=== PATIENT | female | born 1960 | race Caucasian/White ===

== ENCOUNTER → 2017-10-19 12:01 | Outpatient (CLI) | payer OTHER, SELFPAY ==
--- NOTE | 2017-10-19 | DI.MG.S_ITS ---
BILATERAL DIGITAL SCREENING MAMMOGRAM 3D/2D WITH CAD: 10/19/2017 CLINICAL: Routine screening. Comparison is made to exams dated: 09/30/2016 mammogram, 09/18/2016 mammogram, and 06/21/2015 mammogram - [facility]. There are scattered fibroglandular elements in both breasts. Current study was also evaluated with a Computer Aided Detection (CAD) system. No significant masses, calcifications, or other findings are seen in either breast. There has been no significant interval change. IMPRESSION: NEGATIVE There is no mammographic evidence of malignancy. A 1 year screening mammogram is recommended. This exam was interpreted at Station ID: [id number]. NOTE: For mammograms, a report in lay terms will be sent to the patient. Approximately 15% of breast malignancies will not be visualized mammographically. In the management of a palpable breast mass, a negative mammogram must not discourage biopsy of a clinically suspicious lesion. Electronically Signed By: Sammie gomez/oniel:10/19/2017 12:45:00 letter sent: Normal Exam ACR BI-RADS Category 1: Negative [id number]
== END ==
PROVIDERS: PCP Family Medicine; Visit Provider Family Medicine
DX: Z12.31 Encounter for screening mammogram for malignant neoplasm of breast (principal)
CPT/HCPCS: 77063; 77067

== ENCOUNTER → 2017-10-20 09:03 | Outpatient (CLI) | payer OTHER, SELFPAY ==
[2017-10-20 09:39] LABS: Add Manual Diff / Slide Review NO; Basophils Percent Auto 0.8 % (0-2); Eosinophils Percent Auto 1.8 % (2-4); Hematocrit 37.7 % (36-46); Hemoglobin 13.1 g/dL (12.0-16.0); Lymphocytes Percent Auto 29.1 % (25-40); Mean Corpuscular HGB Conc 34.6 % (30-36); Mean Corpuscular Hemoglobin 31.8 PG (26-34); Mean Corpuscular Volume 91.7 fL (80-100); Monocytes Percent Auto 5.5 % (3-14); Neutrophils Absolute Auto 3700 /uL (3000-5900); Neutrophils Percent Auto 62.8 % (50-75); Platelet Count 201 X10^3/uL (150-400); Red Blood Cell Count 4.11 X10^6/uL (4.0-5.2); Red Cell Distribution Width 12.5 % (11.6-14.8); White Blood Cell Count 5.9 X10^3/uL (4.5-11.0)
[2017-10-20 09:58] LABS: Alanine Aminotransferase 29 IU/L (9-52); Albumin 4.5 g/dL (3.5-5.0); Albumin Globulin Ratio 1.4 (1.0-2.8); Alkaline Phosphatase 62 U/L (38-126); Aspartate Aminotransferase 30 IU/L (14-36); Bilirubin Total 0.7 mg/dL (0.2-1.3); Blood Urea Nitrogen 16 mg/dL (7-17); Calcium 9.2 mg/dL (8.4-10.2); Carbon Dioxide 27 mmol/L (22-32); Chloride 103 mmol/L (98-107); Cholesterol 181 mg/dL (140-199); Estimated Glomerular Filt Rate > 60.0 mL/min (>60); Globulin 3.3 g/dL (1.7-4.1); Glucose 84 mg/dL (70-100); HDL Cholesterol 84 mg/dL (40-60); HEMOLYSIS < 15 (0-50); LDL Cholesterol Calculated 87 mg/dL (<100); Potassium 3.9 mmol/L (3.4-5.1); Sodium 142 mmol/L (137-145); Total Protein 7.8 g/dL (6.3-8.2); Triglycerides 49 mg/dL (35-150)
[2017-10-20 11:00] LABS: Thyroid Stimulating Hormone 0.19 uIU/mL (0.47-4.68)
== END ==
PROVIDERS: PCP Family Medicine; Visit Provider Family Medicine
DX: E03.9 Hypothyroidism, unspecified (principal); Z00.00 Encounter for general adult medical examination without abnormal findings
CPT/HCPCS: 36415; 80053; 80061; 84443; 85025

== ENCOUNTER → 2017-11-04 08:10 | Outpatient (CLI) | payer OTHER, SELFPAY ==
[2017-11-04 09:47] LABS: Free T3, Triiodothyronine Free 3.47 pg/mL (2.77-5.27); Free T4, Direct Thyroxine 1.23 ng/dL (0.78-2.19)
== END ==
PROVIDERS: PCP Family Medicine; Visit Provider Family Medicine
DX: E06.3 Autoimmune thyroiditis (principal)
CPT/HCPCS: 36415; 84439; 84481

== ENCOUNTER → 2018-02-10 10:00 | Outpatient (CLI) | payer OTHER, SELFPAY | PROVIDERS: PCP Family Medicine | DX: Z23 Encounter for immunization (principal) | CPT/HCPCS: 90471; 90686 ==

== ENCOUNTER → 2018-04-28 14:39 | Outpatient (CLI) | payer OTHER, SELFPAY ==
--- NOTE | 2018-04-28 | DI.RAD.S_ITS ---
PROCEDURE: XR HIP W PEL IF DONE LT 2V INDICATIONS: Left hip pain s/p ground level fall TECHNIQUE: 2 views of left hip COMPARISON: None. FINDINGS: Bones: Mild left hip joint osteophytes is seen. No evidence of avascular necrosis. No fractures or dislocations. Pelvic ring appears intact. No suspicious bony lesions. Soft tissues: The visualized bowel gas pattern is normal. No suspicious soft tissue calcifications. IMPRESSION: Mild left hip joint osteoarthritis. Dictated by: Eriberto Siu M.D. on 04/28/2018 at 15:49 Approved by: Eriberto Siu M.D. on 04/28/2018 at 15:55
== END ==
PROVIDERS: PCP Family Medicine; Visit Provider Nurse Practitioner Family
DX: M25.552 Pain in left hip (principal); M16.12 Unilateral primary osteoarthritis, left hip
CPT/HCPCS: 73502

== ENCOUNTER → 2018-05-06 09:56 | Outpatient (CLI) | payer OTHER, SELFPAY | PROVIDERS: PCP Family Medicine; Visit Provider Nurse Practitioner Family | DX: M85.88 Other specified disorders of bone density and structure, other site (principal); Z78.0 Asymptomatic menopausal state; E07.9 Disorder of thyroid, unspecified; Z82.62 Family history of osteoporosis | CPT/HCPCS: 77080 ==

== ENCOUNTER → 2018-05-20 08:00 | Outpatient (CLI) | payer OTHER, SELFPAY ==
[2018-05-20 09:24] LABS: Free T3, Triiodothyronine Free 3.25 pg/mL (2.77-5.27)
[2018-05-20 09:38] LABS: Thyroid Stimulating Hormone 0.12 uIU/mL (0.47-4.68)
== END ==
PROVIDERS: PCP Family Medicine; Visit Provider Family Medicine
DX: E03.9 Hypothyroidism, unspecified (principal)
CPT/HCPCS: 36415; 84439; 84443; 84481

== ENCOUNTER → 2018-10-27 08:03 | Outpatient (CLI) | payer OTHER, SELFPAY ==
--- NOTE | 2018-10-27 | DI.MG.S_ITS ---
BILATERAL DIGITAL SCREENING MAMMOGRAM 3D/2D WITH CAD: 10/27/2018 CLINICAL: Routine screening. Comparison is made to exams dated: 10/19/2017 mammogram, 09/30/2016 mammogram, 09/18/2016 mammogram, and 06/21/2015 mammogram - [facility]. There are scattered fibroglandular elements in both breasts. Current study was also evaluated with a Computer Aided Detection (CAD) system. No significant masses, calcifications, or other findings are seen in either breast. There has been no significant interval change. IMPRESSION: NEGATIVE There is no mammographic evidence of malignancy. A 1 year screening mammogram is recommended. This exam was interpreted at Station ID: [id number]. NOTE: For mammograms, a report in lay terms will be sent to the patient. Approximately 15% of breast malignancies will not be visualized mammographically. In the management of a palpable breast mass, a negative mammogram must not discourage biopsy of a clinically suspicious lesion. Electronically Signed By: Abdullahi bernardo/oniel:10/28/2018 06:38:01 letter sent: Normal Exam ACR BI-RADS Category 1: Negative [id number]
== END ==
PROVIDERS: PCP Family Medicine; Visit Provider Family Medicine
DX: Z12.31 Encounter for screening mammogram for malignant neoplasm of breast (principal)
CPT/HCPCS: 77063; 77067

== ENCOUNTER → 2018-11-14 09:37 | Outpatient (CLI) | payer OTHER, SELFPAY ==
[2018-11-14 12:23] LABS: Free T3, Triiodothyronine Free 3.41 pg/mL (2.77-5.27); Free T4, Direct Thyroxine 0.98 ng/dL (0.78-2.19)
[2018-11-14 12:36] LABS: Thyroid Stimulating Hormone 0.61 uIU/mL (0.47-4.68)
== END ==
PROVIDERS: PCP Family Medicine; Visit Provider Family Medicine
DX: E03.9 Hypothyroidism, unspecified (principal); Z00.00 Encounter for general adult medical examination without abnormal findings
CPT/HCPCS: 36415; 84439; 84443; 84481

== ENCOUNTER → 2019-02-07 11:34 | Outpatient (CLI) | payer OTHER, SELFPAY | PROVIDERS: PCP Family Medicine | DX: Z23 Encounter for immunization (principal) | CPT/HCPCS: 90471; 90686 ==

== ENCOUNTER 2019-03-13 16:00 | Outpatient (RCR) | payer OTHER, SELFPAY ==
--- NOTE | 2018-12-20 17:50 | PT.OPPOC ---
Current Diagnoses Cervicalgia (12/20/18) Other specified disorders of bone, shoulder (12/20/18) Abnormal posture (12/20/18) Weakness (12/20/18) Provider Visit Care Team Role Provider Type Real Johnson MD Primary Care Provider Physician Specialty: Family Practice Address: [address] [place] [address], [address] Email: [email or web address] NANCY Smith Attending Provider Advanced Solar Installation Technician Specialty: [facility] Practice Address: [address] [place] [address], [id number] Email: [email or web address] Plan Of Care PT-OP-T Assessment and Plan Start: 12/19/18 18:57 Freq: Status: Active Protocol: Document 12/20/18 16:46 [facility] (Rec: 12/20/18 17:55 [facility] [id number]) Physical Therapy Assessment Rehab Potential Rehabilitation Potential Excellent Evaluation Complexity Number of Personal Factors/Comorbidities 3 or More Number of Body Systems Impaired 4 or More Clinical Presentation at Evaluation Evolving Impairments Impairments Activity Tolerance Functional Activities Functional Mobility Pain Posture ROM Soft Tissue Mobility Strength Goals DASH Half-Way Goal (LTG) Pt will score 5 or less of DASH to show ability for full return to activities without pain. LTG Duration 02/19/19 activities Short Term Goal (STG) Pt will be indep with HEP STG Duration 01/20/19 Perfume Maker Goal (LTG) Pt will be able to return to typical workouts without inc neck or shoulder or UE pain. LTG Duration 02/19/19 posture Short Term Goal (STG) Pt will present with good seated and standing posture without cueing. STG Duration 01/20/19 Perfume Maker Goal (LTG) Pt will have 5/5 LPM, EFT & VCT in order to demonstrate improved core stability and postural stability and efficiency in order to participate in work and other dynamic standing and sitting activities without pain. LTG Duration 02/19/19 Assessment Summary Assessment Pt presents with L scapular pain with also recent L elbow pain and numbness into hand. She has significantly dec cervical ROM and has pain in neck and R UT. It is likely that symptoms in L scapula & LUE are d/t neck pain and possible neural tension. Further testing to be done re: neural tension to determine further. She has inc kyphosis and uses TL junction ext to get her cervical spine upright and therefore has dec core stability and dec postural efficiency, which could be contributing to her pain. Pt has overall dec ROM & strength of cervical spine & shoulders and would benefit from skilled PT to cont to advance motion, strength, posture and efficiency of movement. Physical Therapy Plan Frequency and Duration Frequency of Treatment 1-2x/week Duration of Treatment 2 months Plan of Care Start Date 12/20/18 Plan of Care End Date 02/19/19 Therapeutic Interventions Therapeutic Interventions Aquatic Therapy Home Exercise Program Joint Mobilizations Manual Therapy Neuromuscular Re-education Patient/Caregiver Education Self-Care/Home Management Soft Tissue Mobilization Taping Therapeutic Activities Therapeutic Exercises Modalities Cold Pack/Ice Massage Electric Stimulation Hot Packs Infrared Therapy Iontophoresis Traction- Mechanical Ultrasound Next Visit Focus/Plan Next Note Type Treatment Note Next Visit Plan neural tension testing, postural edu, foam roll, STM to neck & scapular region, joint mobility of upper t- spine Plan of Care Dates Plan of Care Start Date 12/20/18 Plan of Care End Date 02/19/19 Please Sign and Return: I have reviewed this Plan of Care and certify that the skilled therapy services above are required to meet the patient?s needs. Physician Signature Date Printed Name and Credentials Clinical Instructor Signature Printed Name and Credentials
--- NOTE | 2018-12-20 17:50 | PT.OIE ---
Current Diagnoses Cervicalgia (12/20/18) Other specified disorders of bone, shoulder (12/20/18) Abnormal posture (12/20/18) Weakness (12/20/18) Provider Visit Care Team Role Provider Type Real Johnson MD Primary Care Provider Physician Specialty: Family Practice Address: [address] [place] [address], [address] Email: [email or web address] NANCY Smith Attending Provider Advanced Pattern Painter Specialty: [facility] Practice Address: [address] [place] [address], [id number] Email: [email or web address] Physical Therapy Initial Evaluation PT-OP-A Visit Information Start: 12/19/18 18:57 Freq: Status: Active Protocol: Document 12/20/18 16:46 [facility] (Rec: 12/20/18 18:07 [facility] [id number]) Out-Patient Physical Therapy Visit Information Visit Information Visit Type Initial Evaluation Visit Start Time 16:50 Visit Stop Time 17:40 Total Visit Minutes 50 Visit Number 1 Number of ABSORBER OPERATOR Visits 0 PT-OP-B Current Condition Start: 12/19/18 18:57 Freq: Status: Active Protocol: Document 12/20/18 16:46 [facility] (Rec: 12/20/18 17:55 [facility] [id number]) Current Condition History of Current Condition Onset Date october Current Complaints neck and L scapular pain History of Current Condition Pt reports pain in L inf angle of scapula and it feels like it goes into a spasm when working out starting in October. Pt reports she feels like she overcompensated and now her R UT region & neck has been painful. pt reports after hiking, she had pain into groin in October that is now having pain down into leg. Pt reports she uses the TRX bands and that sometimes causes the shoulder pain. Pt reprots she sometimes would lose feeling in hands and had elbow pain that in the last week has been better. Pt tried some weight liftingt his week and has been doing okay. Pt is limiting her workouts now d/t pain. Prior Treatments and Tests none Treatment Goals Patient/Caregiver Goals Dec pain, be able to be able to return to full exercising without limit, be able to work comfortably Prior Functional Status Baseline Function- Recreation/Hobbies Cardio step aeorbics, road biking, rowing, strength training (free weights, sand bags & TRX straps) , eat the frog workout PT-OP-C Subjective Start: 12/19/18 18:57 Freq: Status: Active Protocol: Document 12/20/18 16:46 [facility] (Rec: 12/20/18 17:55 [facility] [id number]) Patient Questionnaires Quick Dash- Upper Extremity Quick Dash UE Score 27.27 Quick Dash UE Impairment 20 to 39% Impaired (Score 20- 39) OP-PT Pain Assessment Location L scapula Intensity 7 Scale Used Numeric (1 - 10) Description Sharp Spasm Tightness Description- Other R shoulder/neck sorenss 4-5/10 & more constant; achiness after 4/10 Frequency Occasional Pain Duration spasm lasts a few min then the achiness stays Other Pain Aggravating Factors workouts, work, reaching Pain Alleviating Factors Heat Other Pain Alleviating Factors stretch PT-OP-F Manual Assessment Start: 12/19/18 18:57 Freq: Status: Active Protocol: Document 12/20/18 16:46 [facility] (Rec: 12/20/18 18:07 [facility] [id number]) Manual Assessments Soft Tissue Assessment Soft Tissue Mobility Assessment tightness in L sided thoracic paraspinals, B UT, LS, cervical paraspinals, scalenes & pecs tight Joint Mobility Assessment Joint Mobility Assessment elevated 1st rib PT-OP-J Posture/Palpation/Skin Start: 12/19/18 18:57 Freq: Status: Active Protocol: Document 12/20/18 16:46 [facility] (Rec: 12/20/18 17:55 [facility] [id number]) Posture Evaluation Ely Postural Classification System Ely Postural Classifications Posterior/Posterior Vertebral Compression Test 0 Elbow Flexion Test 1 Lumbar Protective Mechanism Left AP 1 Lumbar Protective Mechanism Right AP 0 Lumbar Protective Mechanism Left PA 1 Lumbar Protective Mechanism Right PA 1 PT-OP-K Range of Motion Start: 12/19/18 18:57 Freq: Status: Active Protocol: Document 12/20/18 16:46 [facility] (Rec: 12/20/18 17:55 [facility] [id number]) Cervical Spine Range of Motion Cervical Spine Active Degrees Flexion 45 Extension 55 Rotation Left 66 Rotation Right 65 Lateral Flexion Left 30 Lateral Flexion Right 25 ROM Limitations Soft Tissue Tightness Shoulder Goniometric Range of Motion Shoulder Left Active Testing Position Standing Flexion 162 Extension 50 Abduction 171 External Rotation at 90 degrees 120 Abduction External Rotation at 0 degrees Abduction 90 Internal Rotation 59 Internal Rotation Behind Back (text) T7 Right Active Testing Position Standing Flexion 155 Extension 52 Abduction 180 External Rotation at 90 degrees 120 Abduction External Rotation at 0 degrees Abduction 60 Internal Rotation 65 Internal Rotation Behind Back (text) T7 Shoulder ROM Limitations Comments pain & tightness with flex, IR & ER & ext into UT region R PT-OP-M Strength Start: 12/19/18 18:57 Freq: Status: Active Protocol: Document 12/20/18 16:46 [facility] (Rec: 12/20/18 17:55 [facility] [id number]) Shoulder Strength Shoulder Manual Muscle Testing Left Flexion 4+ Good+ Extension 4+ Good+ Abduction (C5) 4+ Good+ External Rotation 4+ Good+ Internal Rotation 5 Normal Right Flexion 5 Normal Extension 4+ Good+ Abduction (C5) 5 Normal External Rotation 4 Good Internal Rotation 4+ Good+ PT-OP-Q Treatments Start: 12/19/18 18:57 Freq: Status: Active Protocol: Document 12/20/18 16:46 [facility] (Rec: 12/20/18 17:55 [facility] [id number]) Therapeutic Exercises Sidelying Exercises open book Side bilateral Reps/Minutes 15 Standing Exercises wall posture Standing Exercise Name w/90/90 ER Side bilateral Reps/Minutes 15 PT-OP-T Assessment and Plan Start: 12/19/18 18:57 Freq: Status: Active Protocol: Document 12/20/18 16:46 [facility] (Rec: 12/20/18 17:55 [facility] [id number]) Physical Therapy Assessment Rehab Potential Rehabilitation Potential Excellent Evaluation Complexity Number of Personal Factors/Comorbidities 3 or More Number of Body Systems Impaired 4 or More Clinical Presentation at Evaluation Evolving Impairments Impairments Activity Tolerance Functional Activities Functional Mobility Pain Posture ROM Soft Tissue Mobility Strength Goals DASH Half-Way Goal (LTG) Pt will score 5 or less of DASH to show ability for full return to activities without pain. LTG Duration 02/19/19 activities Short Term Goal (STG) Pt will be indep with HEP STG Duration 01/20/19 Half-Way Goal (LTG) Pt will be able to return to typical workouts without inc neck or shoulder or UE pain. LTG Duration 02/19/19 posture Short Term Goal (STG) Pt will present with good seated and standing posture without cueing. STG Duration 01/20/19 Half-Way Goal (LTG) Pt will have 5/5 LPM, EFT & VCT in order to demonstrate improved core stability and postural stability and efficiency in order to participate in work and other dynamic standing and sitting activities without pain. LTG Duration 02/19/19 Assessment Summary Assessment Pt presents with L scapular pain with also recent L elbow pain and numbness into hand. She has significantly dec cervical ROM and has pain in neck and R UT. It is likely that symptoms in L scapula & LUE are d/t neck pain and possible neural tension. Further testing to be done re: neural tension to determine further. She has inc kyphosis and uses TL junction ext to get her cervical spine upright and therefore has dec core stability and dec postural efficiency, which could be contributing to her pain. Pt has overall dec ROM & strength of cervical spine & shoulders and would benefit from skilled PT to cont to advance motion, strength, posture and efficiency of movement. Physical Therapy Plan Frequency and Duration Frequency of Treatment 1-2x/week Duration of Treatment 2 months Plan of Care Start Date 12/20/18 Plan of Care End Date 02/19/19 Therapeutic Interventions Therapeutic Interventions Aquatic Therapy Home Exercise Program Joint Mobilizations Manual Therapy Neuromuscular Re-education Patient/Caregiver Education Self-Care/Home Management Soft Tissue Mobilization Taping Therapeutic Activities Therapeutic Exercises Modalities Cold Pack/Ice Massage Electric Stimulation Hot Packs Infrared Therapy Iontophoresis Traction- Mechanical Ultrasound Next Visit Focus/Plan Next Note Type Treatment Note Next Visit Plan neural tension testing, postural edu, foam roll, STM to neck & scapular region, joint mobility of upper t- spine
--- NOTE | 2018-12-26 18:44 | PT.OTN ---
Current Diagnoses Cervicalgia (12/26/18) Other specified disorders of bone, shoulder (12/26/18) Abnormal posture (12/26/18) Weakness (12/26/18) Physical Therapy Treatment Note PT-OP-A Visit Information Start: 12/19/18 18:57 Freq: Status: Active Protocol: Document 12/26/18 18:16 [facility] (Rec: 12/27/18 09:44 [facility] [id number]) Out-Patient Physical Therapy Visit Information Visit Information Visit Type Treatment Note Visit Start Time 17:31 Visit Stop Time 18:26 Total Visit Minutes 55 Visit Number 2 Number of PROPERTIES SUPERVISOR Visits 0 PT-OP-B Current Condition Start: 12/19/18 18:57 Freq: Status: Active Protocol: Document 12/20/18 16:46 [facility] (Rec: 12/20/18 17:55 [facility] [id number]) Current Condition History of Current Condition Onset Date october Current Complaints neck and L scapular pain History of Current Condition Pt reports pain in L inf angle of scapula and it feels like it goes into a spasm when working out starting in October. Pt reports she feels like she overcompensated and now her R UT region & neck has been painful. pt reports after hiking, she had pain into groin in October that is now having pain down into leg. Pt reports she uses the TRX bands and that sometimes causes the shoulder pain. Pt reprots she sometimes would lose feeling in hands and had elbow pain that in the last week has been better. Pt tried some weight liftingt his week and has been doing okay. Pt is limiting her workouts now d/t pain. Prior Treatments and Tests none Treatment Goals Patient/Caregiver Goals Dec pain, be able to be able to return to full exercising without limit, be able to work comfortably Prior Functional Status Baseline Function- Recreation/Hobbies Cardio step aeorbics, road biking, rowing, strength training (free weights, sand bags & TRX straps) , eat the frog workout PT-OP-C Subjective Start: 12/19/18 18:57 Freq: Status: Active Protocol: Document 12/26/18 18:16 [facility] (Rec: 12/27/18 09:44 [facility] [id number]) OP-PT Subjective Patient Comments Patient Comments Pt reports she was just getting ready for work today and had the pain in her scapula this AM. Notes it imporved over a few hours during the day. Unsure what she did. Notes she did ride her bike this AM though. COmpliance with HEP. PT-OP-F Manual Assessment Start: 12/19/18 18:57 Freq: Status: Active Protocol: Document 12/20/18 16:46 [facility] (Rec: 12/20/18 18:07 [facility] [id number]) Manual Assessments Soft Tissue Assessment Soft Tissue Mobility Assessment tightness in L sided thoracic paraspinals, B UT, LS, cervical paraspinals, scalenes & pecs tight Joint Mobility Assessment Joint Mobility Assessment elevated 1st rib PT-OP-J Posture/Palpation/Skin Start: 12/19/18 18:57 Freq: Status: Active Protocol: Document 12/20/18 16:46 [facility] (Rec: 12/20/18 17:55 [facility] [id number]) Posture Evaluation Ely Postural Classification System Ely Postural Classifications Posterior/Posterior Vertebral Compression Test 0 Elbow Flexion Test 1 Lumbar Protective Mechanism Left AP 1 Lumbar Protective Mechanism Right AP 0 Lumbar Protective Mechanism Left PA 1 Lumbar Protective Mechanism Right PA 1 PT-OP-K Range of Motion Start: 12/19/18 18:57 Freq: Status: Active Protocol: Document 12/20/18 16:46 [facility] (Rec: 12/20/18 17:55 [facility] [id number]) Cervical Spine Range of Motion Cervical Spine Active Degrees Flexion 45 Extension 55 Rotation Left 66 Rotation Right 65 Lateral Flexion Left 30 Lateral Flexion Right 25 ROM Limitations Soft Tissue Tightness Shoulder Goniometric Range of Motion Shoulder Left Active Testing Position Standing Flexion 162 Extension 50 Abduction 171 External Rotation at 90 degrees 120 Abduction External Rotation at 0 degrees Abduction 90 Internal Rotation 59 Internal Rotation Behind Back (text) T7 Right Active Testing Position Standing Flexion 155 Extension 52 Abduction 180 External Rotation at 90 degrees 120 Abduction External Rotation at 0 degrees Abduction 60 Internal Rotation 65 Internal Rotation Behind Back (text) T7 Shoulder ROM Limitations Comments pain & tightness with flex, IR & ER & ext into UT region R PT-OP-M Strength Start: 12/19/18 18:57 Freq: Status: Active Protocol: Document 12/20/18 16:46 [facility] (Rec: 12/20/18 17:55 [facility] [id number]) Shoulder Strength Shoulder Manual Muscle Testing Left Flexion 4+ Good+ Extension 4+ Good+ Abduction (C5) 4+ Good+ External Rotation 4+ Good+ Internal Rotation 5 Normal Right Flexion 5 Normal Extension 4+ Good+ Abduction (C5) 5 Normal External Rotation 4 Good Internal Rotation 4+ Good+ PT-OP-Q Treatments Start: 12/19/18 18:57 Freq: Status: Active Protocol: Document 12/26/18 18:16 [facility] (Rec: 12/27/18 09:44 [facility] [id number]) Therapeutic Exercises Supine Exercises foam roll Supine Exercise Name Habd, abd & flex laying paralell along spine then perpendicular w/tspine ex Side bilateral Reps/Minutes 10 ea Sidelying Exercises open book Side bilateral Reps/Minutes 15 Comments focus on full thoracic rotation Standing Exercises wall posture Standing Exercise Name w/90/90 ER Side bilateral Reps/Minutes 15 Comments focus on maintaining lower back positioning Other Exercises thread the needle Side bilateral Reps/Minutes 30 sec holds refugio pose Other Exercise Name fwd & to B sides Reps/Minutes 30 sec ea cat/camel Other Exercise Name focus on full range through throcic Reps/Minutes 10 Manual Therapy Treatment Soft Tissue Mobilization UT Body Location B Mobilization Type Rolling Intensity/Depth Moderate subscapularis Body Location L Mobilization Type Sustained Pressure Joint Mobilizations thoracic Joint T4-7 Direction PA & UPA L PT-OP-R Modalities Start: 12/19/18 18:57 Freq: Status: Active Protocol: Document 12/26/18 18:16 [facility] (Rec: 12/27/18 09:44 [facility] [id number]) Hot Pack/Cold Pack Treatment Hot Pack Location upper thoracic & cervical Patient Position Prone Treatment Duration (minutes) 10 Patient Tolerance Good PT-OP-T Assessment and Plan Start: 12/19/18 18:57 Freq: Status: Active Protocol: Document 12/26/18 18:16 [facility] (Rec: 12/27/18 09:44 [facility] [id number]) Physical Therapy Assessment Goals DASH Agriculture Department Chair Goal (LTG) Pt will score 5 or less of DASH to show ability for full return to activities without pain. LTG Duration 02/19/19 activities Short Term Goal (STG) Pt will be indep with HEP STG Duration 01/20/19 Agriculture Department Chair Goal (LTG) Pt will be able to return to typical workouts without inc neck or shoulder or UE pain. LTG Duration 02/19/19 posture Short Term Goal (STG) Pt will present with good seated and standing posture without cueing. STG Duration 01/20/19 Agriculture Department Chair Goal (LTG) Pt will have 5/5 LPM, EFT & VCT in order to demonstrate improved core stability and postural stability and efficiency in order to participate in work and other dynamic standing and sitting activities without pain. LTG Duration 02/19/19 Assessment Summary Assessment Pt required cueing for HEP and then was cued for focus on motion in thoracic and stretching during new exercises. She appears to have dec core stability which likely contributes to postural stability. Pt has significnat thoracic restrictions. Physical Therapy Plan Frequency and Duration Frequency of Treatment 1-2x/week Duration of Treatment 2 months Plan of Care Start Date 12/20/18 Plan of Care End Date 02/19/19 Next Visit Focus/Plan Next Note Type Treatment Note Next Visit Plan neural tension testing, postural edu, review HEP, STM to neck & scapular region, joint mobility of upper t- spine
--- NOTE | 2019-01-03 16:19 | PT.OTN ---
Current Diagnoses Cervicalgia (01/03/19) Other specified disorders of bone, shoulder (01/03/19) Abnormal posture (01/03/19) Weakness (01/03/19) Physical Therapy Treatment Note PT-OP-A Visit Information Start: 12/19/18 18:57 Freq: Status: Active Protocol: Document 01/03/19 18:00 [facility] (Rec: 01/04/19 10:19 [facility] [id number]) Out-Patient Physical Therapy Visit Information Visit Information Visit Type Treatment Note Visit Start Time 16:50 Visit Stop Time 17:45 Total Visit Minutes 55 Visit Number 3 Number of ORAL THERAPIST Visits 0 PT-OP-B Current Condition Start: 12/19/18 18:57 Freq: Status: Active Protocol: Document 12/20/18 16:46 [facility] (Rec: 12/20/18 17:55 [facility] [id number]) Current Condition History of Current Condition Onset Date october Current Complaints neck and L scapular pain History of Current Condition Pt reports pain in L inf angle of scapula and it feels like it goes into a spasm when working out starting in October. Pt reports she feels like she overcompensated and now her R UT region & neck has been painful. pt reports after hiking, she had pain into groin in October that is now having pain down into leg. Pt reports she uses the TRX bands and that sometimes causes the shoulder pain. Pt reprots she sometimes would lose feeling in hands and had elbow pain that in the last week has been better. Pt tried some weight liftingt his week and has been doing okay. Pt is limiting her workouts now d/t pain. Prior Treatments and Tests none Treatment Goals Patient/Caregiver Goals Dec pain, be able to be able to return to full exercising without limit, be able to work comfortably Prior Functional Status Baseline Function- Recreation/Hobbies Cardio step aeorbics, road biking, rowing, strength training (free weights, sand bags & TRX straps) , eat the frog workout PT-OP-C Subjective Start: 12/19/18 18:57 Freq: Status: Active Protocol: Document 01/03/19 18:00 [facility] (Rec: 01/04/19 10:19 [facility] [id number]) OP-PT Subjective Patient Comments Patient Comments Pt reports she has not had pain the pst week really but notes she felt like there was a little discomfort in her shoulder blade region after the gym this AM. PT-OP-F Manual Assessment Start: 12/19/18 18:57 Freq: Status: Active Protocol: Document 12/20/18 16:46 [facility] (Rec: 12/20/18 18:07 [facility] [id number]) Manual Assessments Soft Tissue Assessment Soft Tissue Mobility Assessment tightness in L sided thoracic paraspinals, B UT, LS, cervical paraspinals, scalenes & pecs tight Joint Mobility Assessment Joint Mobility Assessment elevated 1st rib PT-OP-J Posture/Palpation/Skin Start: 12/19/18 18:57 Freq: Status: Active Protocol: Document 12/20/18 16:46 [facility] (Rec: 12/20/18 17:55 [facility] [id number]) Posture Evaluation Ely Postural Classification System Ely Postural Classifications Posterior/Posterior Vertebral Compression Test 0 Elbow Flexion Test 1 Lumbar Protective Mechanism Left AP 1 Lumbar Protective Mechanism Right AP 0 Lumbar Protective Mechanism Left PA 1 Lumbar Protective Mechanism Right PA 1 PT-OP-K Range of Motion Start: 12/19/18 18:57 Freq: Status: Active Protocol: Document 12/20/18 16:46 [facility] (Rec: 12/20/18 17:55 [facility] [id number]) Cervical Spine Range of Motion Cervical Spine Active Degrees Flexion 45 Extension 55 Rotation Left 66 Rotation Right 65 Lateral Flexion Left 30 Lateral Flexion Right 25 ROM Limitations Soft Tissue Tightness Shoulder Goniometric Range of Motion Shoulder Left Active Testing Position Standing Flexion 162 Extension 50 Abduction 171 External Rotation at 90 degrees 120 Abduction External Rotation at 0 degrees Abduction 90 Internal Rotation 59 Internal Rotation Behind Back (text) T7 Right Active Testing Position Standing Flexion 155 Extension 52 Abduction 180 External Rotation at 90 degrees 120 Abduction External Rotation at 0 degrees Abduction 60 Internal Rotation 65 Internal Rotation Behind Back (text) T7 Shoulder ROM Limitations Comments pain & tightness with flex, IR & ER & ext into UT region R PT-OP-M Strength Start: 12/19/18 18:57 Freq: Status: Active Protocol: Document 12/20/18 16:46 [facility] (Rec: 12/20/18 17:55 [facility] [id number]) Shoulder Strength Shoulder Manual Muscle Testing Left Flexion 4+ Good+ Extension 4+ Good+ Abduction (C5) 4+ Good+ External Rotation 4+ Good+ Internal Rotation 5 Normal Right Flexion 5 Normal Extension 4+ Good+ Abduction (C5) 5 Normal External Rotation 4 Good Internal Rotation 4+ Good+ PT-OP-Q Treatments Start: 12/19/18 18:57 Freq: Status: Active Protocol: Document 01/03/19 18:00 [facility] (Rec: 01/04/19 10:19 [facility] [id number]) Therapeutic Exercises Standing Exercises row Side bilateral Equipment Used L3 Reps/Minutes 10x2 wall posture Standing Exercise Name w/90/90 ER Side bilateral Reps/Minutes 15 Comments focus on maintaining lower back positioning Therapeutic Activity Therapeutic Activity posture Name standing posture Manual Therapy Treatment Soft Tissue Mobilization pec Body Location L Mobilization Type Rolling Intensity/Depth Moderate UT Body Location B UT & scalenes Mobilization Type Rolling Intensity/Depth Moderate Joint Mobilizations ribs Joint L Direction 2 & 3 AP FM Self-Care/Home Management Treatment Education Other Education edu of anaotmy of scapula & ribcage region. edu of appropriate mechanics with rowing PT-OP-R Modalities Start: 12/19/18 18:57 Freq: Status: Active Protocol: Document 01/03/19 18:00 [facility] (Rec: 01/04/19 10:19 [facility] [id number]) Hot Pack/Cold Pack Treatment Hot Pack Location upper thoracic & cervical Patient Position Prone Treatment Duration (minutes) 10 Patient Tolerance Good PT-OP-T Assessment and Plan Start: 12/19/18 18:57 Freq: Status: Active Protocol: Document 01/03/19 18:00 [facility] (Rec: 01/04/19 10:19 [facility] [id number]) Physical Therapy Assessment Goals DASH Snf Goal (LTG) Pt will score 5 or less of DASH to show ability for full return to activities without pain. LTG Duration 02/19/19 activities Short Term Goal (STG) Pt will be indep with HEP STG Duration 01/20/19 Coat Repair Inspector Goal (LTG) Pt will be able to return to typical workouts without inc neck or shoulder or UE pain. LTG Duration 02/19/19 posture Short Term Goal (STG) Pt will present with good seated and standing posture without cueing. STG Duration 01/20/19 Snf Goal (LTG) Pt will have 5/5 LPM, EFT & VCT in order to demonstrate improved core stability and postural stability and efficiency in order to participate in work and other dynamic standing and sitting activities without pain. LTG Duration 02/19/19 Assessment Summary Assessment Pt had improved posture with cueing. She was able to do rowing exercise and posture exercise with cueing today for form and maintainin neutral lumbar spine. Improved scapular postioning B after manual treatemtn. Physical Therapy Plan Frequency and Duration Frequency of Treatment 1-2x/week Duration of Treatment 2 months Plan of Care Start Date 12/20/18 Plan of Care End Date 02/19/19 Next Visit Focus/Plan Next Note Type Treatment Note Next Visit Plan neural tension testing, postural edu, STM & joint mobility
--- NOTE | 2019-01-18 18:53 | PT.OTN ---
Current Diagnoses Cervicalgia (01/18/19) Other specified disorders of bone, shoulder (01/18/19) Abnormal posture (01/18/19) Weakness (01/18/19) Physical Therapy Treatment Note PT-OP-A Visit Information Start: 12/19/18 18:57 Freq: Status: Active Protocol: Document 01/18/19 18:42 [facility] (Rec: 01/18/19 18:53 [facility] [id number]) Out-Patient Physical Therapy Visit Information Visit Information Visit Type Treatment Note Visit Start Time 16:48 Visit Stop Time 17:45 Total Visit Minutes 57 Visit Number 4 Number of PROCESS DEVELOPMENT ASSOCIATE Visits 0 PT-OP-B Current Condition Start: 12/19/18 18:57 Freq: Status: Active Protocol: Document 12/20/18 16:46 [facility] (Rec: 12/20/18 17:55 [facility] [id number]) Current Condition History of Current Condition Onset Date october Current Complaints neck and L scapular pain History of Current Condition Pt reports pain in L inf angle of scapula and it feels like it goes into a spasm when working out starting in October. Pt reports she feels like she overcompensated and now her R UT region & neck has been painful. pt reports after hiking, she had pain into groin in October that is now having pain down into leg. Pt reports she uses the TRX bands and that sometimes causes the shoulder pain. Pt reprots she sometimes would lose feeling in hands and had elbow pain that in the last week has been better. Pt tried some weight liftingt his week and has been doing okay. Pt is limiting her workouts now d/t pain. Prior Treatments and Tests none Treatment Goals Patient/Caregiver Goals Dec pain, be able to be able to return to full exercising without limit, be able to work comfortably Prior Functional Status Baseline Function- Recreation/Hobbies Cardio step aeorbics, road biking, rowing, strength training (free weights, sand bags & TRX straps) , eat the frog workout PT-OP-C Subjective Start: 12/19/18 18:57 Freq: Status: Active Protocol: Document 01/18/19 18:42 [facility] (Rec: 01/18/19 18:53 [facility] [id number]) OP-PT Subjective Patient Comments Patient Comments Pt reports last week no pain while she was off work and did a lot of lifting and meal prep etc d/t her son's wedding this past weekend. Reports possibly pain the week prior but doesn't remember. She is getting back to her typical routine this week. PT-OP-F Manual Assessment Start: 12/19/18 18:57 Freq: Status: Active Protocol: Document 12/20/18 16:46 [facility] (Rec: 12/20/18 18:07 [facility] [id number]) Manual Assessments Soft Tissue Assessment Soft Tissue Mobility Assessment tightness in L sided thoracic paraspinals, B UT, LS, cervical paraspinals, scalenes & pecs tight Joint Mobility Assessment Joint Mobility Assessment elevated 1st rib PT-OP-J Posture/Palpation/Skin Start: 12/19/18 18:57 Freq: Status: Active Protocol: Document 12/20/18 16:46 [facility] (Rec: 12/20/18 17:55 [facility] [id number]) Posture Evaluation Ely Postural Classification System Ely Postural Classifications Posterior/Posterior Vertebral Compression Test 0 Elbow Flexion Test 1 Lumbar Protective Mechanism Left AP 1 Lumbar Protective Mechanism Right AP 0 Lumbar Protective Mechanism Left PA 1 Lumbar Protective Mechanism Right PA 1 PT-OP-K Range of Motion Start: 12/19/18 18:57 Freq: Status: Active Protocol: Document 12/20/18 16:46 [facility] (Rec: 12/20/18 17:55 [facility] [id number]) Cervical Spine Range of Motion Cervical Spine Active Degrees Flexion 45 Extension 55 Rotation Left 66 Rotation Right 65 Lateral Flexion Left 30 Lateral Flexion Right 25 ROM Limitations Soft Tissue Tightness Shoulder Goniometric Range of Motion Shoulder Left Active Testing Position Standing Flexion 162 Extension 50 Abduction 171 External Rotation at 90 degrees 120 Abduction External Rotation at 0 degrees Abduction 90 Internal Rotation 59 Internal Rotation Behind Back (text) T7 Right Active Testing Position Standing Flexion 155 Extension 52 Abduction 180 External Rotation at 90 degrees 120 Abduction External Rotation at 0 degrees Abduction 60 Internal Rotation 65 Internal Rotation Behind Back (text) T7 Shoulder ROM Limitations Comments pain & tightness with flex, IR & ER & ext into UT region R PT-OP-M Strength Start: 12/19/18 18:57 Freq: Status: Active Protocol: Document 12/20/18 16:46 [facility] (Rec: 12/20/18 17:55 [facility] [id number]) Shoulder Strength Shoulder Manual Muscle Testing Left Flexion 4+ Good+ Extension 4+ Good+ Abduction (C5) 4+ Good+ External Rotation 4+ Good+ Internal Rotation 5 Normal Right Flexion 5 Normal Extension 4+ Good+ Abduction (C5) 5 Normal External Rotation 4 Good Internal Rotation 4+ Good+ PT-OP-Q Treatments Start: 12/19/18 18:57 Freq: Status: Active Protocol: Document 01/18/19 18:42 [facility] (Rec: 01/18/19 18:53 [facility] [id number]) Cardio Equipment Rowing Machine Duration (Minutes) 3 Other cueing for form Therapeutic Exercises Supine Exercises thoracic ext Supine Exercise Name pelvic tilt with towel roll under tspine & pillow under head Reps/Minutes 10 foam roll Supine Exercise Name Habd, abd & flex laying along spine &perpendicular w/tspine ext&pelvic tilt Side bilateral Reps/Minutes 10 ea Manual Therapy Treatment Joint Mobilizations 1st rib Joint R Direction inf FM AC Joint R Direction ventral FM ribs Joint L Direction 2 & 3 AP FM Comments w/rotation thoracic Joint T4-7 Direction PA & UPA L & transverse R FM Comments T8-10 transverse L with rotation FM PT-OP-R Modalities Start: 12/19/18 18:57 Freq: Status: Active Protocol: Document 01/18/19 18:42 [facility] (Rec: 01/18/19 18:53 [facility] [id number]) Hot Pack/Cold Pack Treatment Hot Pack Location upper thoracic & cervical Patient Position Prone Treatment Duration (minutes) 10 Patient Tolerance Good PT-OP-T Assessment and Plan Start: 12/19/18 18:57 Freq: Status: Active Protocol: Document 01/18/19 18:42 [facility] (Rec: 01/18/19 18:53 [facility] [id number]) Physical Therapy Assessment Goals DASH [facility] Goal (LTG) Pt will score 5 or less of DASH to show ability for full return to activities without pain. LTG Duration 02/19/19 activities Short Term Goal (STG) Pt will be indep with HEP STG Duration 01/20/19 Consumer Marketing Manager Goal (LTG) Pt will be able to return to typical workouts without inc neck or shoulder or UE pain. LTG Duration 02/19/19 posture Short Term Goal (STG) Pt will present with good seated and standing posture without cueing. STG Duration 01/20/19 Consumer Marketing Manager Goal (LTG) Pt will have 5/5 LPM, EFT & VCT in order to demonstrate improved core stability and postural stability and efficiency in order to participate in work and other dynamic standing and sitting activities without pain. LTG Duration 02/19/19 Assessment Summary Assessment Pt had improved thoracic rotation after manual therapy with dec pain/stiffness at end range. Form was reviewed for foam roll exercises per pt request and reviewed appropriate form on rower which pt was able to exhibit. Physical Therapy Plan Frequency and Duration Frequency of Treatment 1-2x/week Duration of Treatment 2 months Plan of Care Start Date 12/20/18 Plan of Care End Date 02/19/19 Next Visit Focus/Plan Next Note Type Treatment Note Next Visit Plan cont to work on postural edu and scapular stability
--- NOTE | 2019-01-23 18:20 | PT.OTN ---
Current Diagnoses Cervicalgia (01/23/19) Other specified disorders of bone, shoulder (01/23/19) Abnormal posture (01/23/19) Weakness (01/23/19) Physical Therapy Treatment Note PT-OP-A Visit Information Start: 12/19/18 18:57 Freq: Status: Active Protocol: Document 01/23/19 16:00 [facility] (Rec: 01/24/19 18:20 [facility] [id number]) Out-Patient Physical Therapy Visit Information Visit Information Visit Type Treatment Note Visit Start Time 15:22 Visit Stop Time 16:00 Total Visit Minutes 38 Visit Number 5 Number of TAPE LIBRARIAN Visits 0 PT-OP-B Current Condition Start: 12/19/18 18:57 Freq: Status: Active Protocol: Document 12/20/18 16:46 [facility] (Rec: 12/20/18 17:55 [facility] [id number]) Current Condition History of Current Condition Onset Date october Current Complaints neck and L scapular pain History of Current Condition Pt reports pain in L inf angle of scapula and it feels like it goes into a spasm when working out starting in October. Pt reports she feels like she overcompensated and now her R UT region & neck has been painful. pt reports after hiking, she had pain into groin in October that is now having pain down into leg. Pt reports she uses the TRX bands and that sometimes causes the shoulder pain. Pt reprots she sometimes would lose feeling in hands and had elbow pain that in the last week has been better. Pt tried some weight liftingt his week and has been doing okay. Pt is limiting her workouts now d/t pain. Prior Treatments and Tests none Treatment Goals Patient/Caregiver Goals Dec pain, be able to be able to return to full exercising without limit, be able to work comfortably Prior Functional Status Baseline Function- Recreation/Hobbies Cardio step aeorbics, road biking, rowing, strength training (free weights, sand bags & TRX straps) , eat the frog workout PT-OP-C Subjective Start: 12/19/18 18:57 Freq: Status: Active Protocol: Document 01/23/19 16:00 [facility] (Rec: 01/24/19 18:20 [facility] [id number]) OP-PT Subjective Patient Comments Patient Comments Pt reports B shoulders feeling good, just neck tension PT-OP-F Manual Assessment Start: 12/19/18 18:57 Freq: Status: Active Protocol: Document 12/20/18 16:46 [facility] (Rec: 12/20/18 18:07 [facility] [id number]) Manual Assessments Soft Tissue Assessment Soft Tissue Mobility Assessment tightness in L sided thoracic paraspinals, B UT, LS, cervical paraspinals, scalenes & pecs tight Joint Mobility Assessment Joint Mobility Assessment elevated 1st rib PT-OP-J Posture/Palpation/Skin Start: 12/19/18 18:57 Freq: Status: Active Protocol: Document 12/20/18 16:46 [facility] (Rec: 12/20/18 17:55 [facility] [id number]) Posture Evaluation [facility] Postural Classification System Ely Postural Classifications Posterior/Posterior Vertebral Compression Test 0 Elbow Flexion Test 1 Lumbar Protective Mechanism Left AP 1 Lumbar Protective Mechanism Right AP 0 Lumbar Protective Mechanism Left PA 1 Lumbar Protective Mechanism Right PA 1 PT-OP-K Range of Motion Start: 12/19/18 18:57 Freq: Status: Active Protocol: Document 12/20/18 16:46 [facility] (Rec: 12/20/18 17:55 [facility] [id number]) Cervical Spine Range of Motion Cervical Spine Active Degrees Flexion 45 Extension 55 Rotation Left 66 Rotation Right 65 Lateral Flexion Left 30 Lateral Flexion Right 25 ROM Limitations Soft Tissue Tightness Shoulder Goniometric Range of Motion Shoulder Left Active Testing Position Standing Flexion 162 Extension 50 Abduction 171 External Rotation at 90 degrees 120 Abduction External Rotation at 0 degrees Abduction 90 Internal Rotation 59 Internal Rotation Behind Back (text) T7 Right Active Testing Position Standing Flexion 155 Extension 52 Abduction 180 External Rotation at 90 degrees 120 Abduction External Rotation at 0 degrees Abduction 60 Internal Rotation 65 Internal Rotation Behind Back (text) T7 Shoulder ROM Limitations Comments pain & tightness with flex, IR & ER & ext into UT region R PT-OP-M Strength Start: 12/19/18 18:57 Freq: Status: Active Protocol: Document 12/20/18 16:46 [facility] (Rec: 12/20/18 17:55 [facility] [id number]) Shoulder Strength Shoulder Manual Muscle Testing Left Flexion 4+ Good+ Extension 4+ Good+ Abduction (C5) 4+ Good+ External Rotation 4+ Good+ Internal Rotation 5 Normal Right Flexion 5 Normal Extension 4+ Good+ Abduction (C5) 5 Normal External Rotation 4 Good Internal Rotation 4+ Good+ PT-OP-Q Treatments Start: 12/19/18 18:57 Freq: Status: Active Protocol: Document 01/23/19 16:00 [facility] (Rec: 01/24/19 18:20 [facility] [id number]) Therapeutic Exercises Supine Exercises axial elongation Supine Exercise Name w/o hand support Reps/Minutes 2 sec x 6 Sitting Exercises stretches Sitting Exercise Name UT, LS, scalenes Side bilateral Reps/Minutes 30 sec ea Standing Exercises row Side bilateral Equipment Used L3 Reps/Minutes 10x2 Comments focus on no UT engagment Manual Therapy Treatment Soft Tissue Mobilization SOR Body Location SOR Mobilization Type Sustained Pressure Intensity/Depth Moderate UT Body Location B UT & scalenes & cervical paraspinals Mobilization Type Rolling Intensity/Depth Moderate Neuro Re-Education Treatment Other Activities PNF Comments ant elevation & post depression rhythmic initiation progressed to combo of isotonics on L PT-OP-R Modalities Start: 12/19/18 18:57 Freq: Status: Active Protocol: Document 01/18/19 18:42 [facility] (Rec: 01/18/19 18:53 [facility] [id number]) Hot Pack/Cold Pack Treatment Hot Pack Location upper thoracic & cervical Patient Position Prone Treatment Duration (minutes) 10 Patient Tolerance Good PT-OP-T Assessment and Plan Start: 12/19/18 18:57 Freq: Status: Active Protocol: Document 01/23/19 16:00 [facility] (Rec: 01/24/19 18:20 [facility] [id number]) Physical Therapy Assessment Goals DASH Group Home Goal (LTG) Pt will score 5 or less of DASH to show ability for full return to activities without pain. LTG Duration 02/19/19 activities Short Term Goal (STG) Pt will be indep with HEP STG Duration 01/20/19 Group Home Goal (LTG) Pt will be able to return to typical workouts without inc neck or shoulder or UE pain. LTG Duration 02/19/19 posture Short Term Goal (STG) Pt will present with good seated and standing posture without cueing. STG Duration 01/20/19 Group Home Goal (LTG) Pt will have 5/5 LPM, EFT & VCT in order to demonstrate improved core stability and postural stability and efficiency in order to participate in work and other dynamic standing and sitting activities without pain. LTG Duration 02/19/19 Assessment Summary Assessment Pt had dec UT activation with rowing exercise after PNF patterns on L scapula were performed. She cont to have over-engagment of UT and requires cueing for neutral scapular & neck positioning Physical Therapy Plan Frequency and Duration Frequency of Treatment 1-2x/week Duration of Treatment 2 months Plan of Care Start Date 12/20/18 Plan of Care End Date 02/19/19 Next Visit Focus/Plan Next Note Type Treatment Note Next Visit Plan cont to work on postural stability w/o UT engagment & cervical stability
--- NOTE | 2019-01-30 18:37 | PT.OTN ---
Current Diagnoses Cervicalgia (01/30/19) Other specified disorders of bone, shoulder (01/30/19) Abnormal posture (01/30/19) Weakness (01/30/19) Physical Therapy Treatment Note PT-OP-A Visit Information Start: 12/19/18 18:57 Freq: Status: Active Protocol: Document 01/30/19 18:31 [facility] (Rec: 01/30/19 18:37 [facility] [id number]) Out-Patient Physical Therapy Visit Information Visit Information Visit Type Treatment Note Visit Start Time 16:49 Visit Stop Time 15:32 Total Visit Minutes 43 Visit Number 6 Number of EMISSIONS INSPECTOR Visits 0 PT-OP-B Current Condition Start: 12/19/18 18:57 Freq: Status: Active Protocol: Document 12/20/18 16:46 [facility] (Rec: 12/20/18 17:55 [facility] [id number]) Current Condition History of Current Condition Onset Date october Current Complaints neck and L scapular pain History of Current Condition Pt reports pain in L inf angle of scapula and it feels like it goes into a spasm when working out starting in October. Pt reports she feels like she overcompensated and now her R UT region & neck has been painful. pt reports after hiking, she had pain into groin in October that is now having pain down into leg. Pt reports she uses the TRX bands and that sometimes causes the shoulder pain. Pt reprots she sometimes would lose feeling in hands and had elbow pain that in the last week has been better. Pt tried some weight liftingt his week and has been doing okay. Pt is limiting her workouts now d/t pain. Prior Treatments and Tests none Treatment Goals Patient/Caregiver Goals Dec pain, be able to be able to return to full exercising without limit, be able to work comfortably Prior Functional Status Baseline Function- Recreation/Hobbies Cardio step aeorbics, road biking, rowing, strength training (free weights, sand bags & TRX straps) , eat the frog workout PT-OP-C Subjective Start: 12/19/18 18:57 Freq: Status: Active Protocol: Document 01/30/19 18:31 [facility] (Rec: 01/30/19 18:37 [facility] [id number]) OP-PT Subjective Patient Comments Patient Comments Pt reports shoulder blade is feeling good but neck has still been stiff and painful PT-OP-F Manual Assessment Start: 12/19/18 18:57 Freq: Status: Active Protocol: Document 12/20/18 16:46 [facility] (Rec: 12/20/18 18:07 [facility] [id number]) Manual Assessments Soft Tissue Assessment Soft Tissue Mobility Assessment tightness in L sided thoracic paraspinals, B UT, LS, cervical paraspinals, scalenes & pecs tight Joint Mobility Assessment Joint Mobility Assessment elevated 1st rib PT-OP-J Posture/Palpation/Skin Start: 12/19/18 18:57 Freq: Status: Active Protocol: Document 12/20/18 16:46 [facility] (Rec: 12/20/18 17:55 [facility] [id number]) Posture Evaluation [facility] Postural Classification System [place] Postural Classifications Posterior/Posterior Vertebral Compression Test 0 Elbow Flexion Test 1 Lumbar Protective Mechanism Left AP 1 Lumbar Protective Mechanism Right AP 0 Lumbar Protective Mechanism Left PA 1 Lumbar Protective Mechanism Right PA 1 PT-OP-K Range of Motion Start: 12/19/18 18:57 Freq: Status: Active Protocol: Document 12/20/18 16:46 [facility] (Rec: 12/20/18 17:55 [facility] [id number]) Cervical Spine Range of Motion Cervical Spine Active Degrees Flexion 45 Extension 55 Rotation Left 66 Rotation Right 65 Lateral Flexion Left 30 Lateral Flexion Right 25 ROM Limitations Soft Tissue Tightness Shoulder Goniometric Range of Motion Shoulder Left Active Testing Position Standing Flexion 162 Extension 50 Abduction 171 External Rotation at 90 degrees 120 Abduction External Rotation at 0 degrees Abduction 90 Internal Rotation 59 Internal Rotation Behind Back (text) T7 Right Active Testing Position Standing Flexion 155 Extension 52 Abduction 180 External Rotation at 90 degrees 120 Abduction External Rotation at 0 degrees Abduction 60 Internal Rotation 65 Internal Rotation Behind Back (text) T7 Shoulder ROM Limitations Comments pain & tightness with flex, IR & ER & ext into UT region R PT-OP-M Strength Start: 12/19/18 18:57 Freq: Status: Active Protocol: Document 12/20/18 16:46 [facility] (Rec: 12/20/18 17:55 [facility] [id number]) Shoulder Strength Shoulder Manual Muscle Testing Left Flexion 4+ Good+ Extension 4+ Good+ Abduction (C5) 4+ Good+ External Rotation 4+ Good+ Internal Rotation 5 Normal Right Flexion 5 Normal Extension 4+ Good+ Abduction (C5) 5 Normal External Rotation 4 Good Internal Rotation 4+ Good+ PT-OP-Q Treatments Start: 12/19/18 18:57 Freq: Status: Active Protocol: Document 01/30/19 18:31 [facility] (Rec: 01/30/19 18:37 [facility] [id number]) Therapeutic Exercises Supine Exercises axial elongation Supine Exercise Name w/o hand support Reps/Minutes 3 sec x 10 Sitting Exercises scap retraction Sitting Exercise Name retract & depress w/tactile cueing Side bilateral Reps/Minutes 10 ea Comments seated and standing progressed to w/rowing motion Standing Exercises ER Side bilateral Equipment Used L1 Reps/Minutes 10 Comments focus on scap retraction row Side bilateral Equipment Used L1 Reps/Minutes 10 Comments focus on no UT engagment Manual Therapy Treatment Soft Tissue Mobilization UT Body Location B UT & scalenes & cervical paraspinals Mobilization Type Rolling Intensity/Depth Moderate Joint Mobilizations cervical Joint C4 VIOLA, C4 &5 transverse L FM 1st rib Joint R Direction inf FM Neuro Re-Education Treatment Other Activities PNF Comments ant elevation & post depression rhythmic initiation progressed to combo of isotonics on R PT-OP-R Modalities Start: 12/19/18 18:57 Freq: Status: Active Protocol: Document 01/18/19 18:42 [facility] (Rec: 01/18/19 18:53 [facility] [id number]) Hot Pack/Cold Pack Treatment Hot Pack Location upper thoracic & cervical Patient Position Prone Treatment Duration (minutes) 10 Patient Tolerance Good PT-OP-T Assessment and Plan Start: 12/19/18 18:57 Freq: Status: Active Protocol: Document 01/30/19 18:31 [facility] (Rec: 01/30/19 18:37 [facility] [id number]) Physical Therapy Assessment Goals DASH Jail Goal (LTG) Pt will score 5 or less of DASH to show ability for full return to activities without pain. LTG Duration 02/19/19 activities Short Term Goal (STG) Pt will be indep with HEP STG Duration 01/20/19 Jail Goal (LTG) Pt will be able to return to typical workouts without inc neck or shoulder or UE pain. LTG Duration 02/19/19 posture Short Term Goal (STG) Pt will present with good seated and standing posture without cueing. STG Duration 01/20/19 Jail Goal (LTG) Pt will have 5/5 LPM, EFT & VCT in order to demonstrate improved core stability and postural stability and efficiency in order to participate in work and other dynamic standing and sitting activities without pain. LTG Duration 02/19/19 Assessment Summary Assessment After PNF and scap depression & retraction exercise, pt had improved performance of row and ER exercise without use of UT. Improved awareness of appropriate scapular movement today. Required significant cueing for deep neck flexor exercise. Physical Therapy Plan Frequency and Duration Frequency of Treatment 1-2x/week Duration of Treatment 2 months Plan of Care Start Date 12/20/18 Plan of Care End Date 02/19/19 Next Visit Focus/Plan Next Note Type Treatment Note Next Visit Plan cont to work on postural stability w/o UT engagment & cervical stability
--- NOTE | 2019-02-06 18:59 | PT.OTN ---
Current Diagnoses Cervicalgia (02/06/19) Other specified disorders of bone, shoulder (02/06/19) Abnormal posture (02/06/19) Weakness (02/06/19) Physical Therapy Treatment Note PT-OP-A Visit Information Start: 12/19/18 18:57 Freq: Status: Active Protocol: Document 02/06/19 18:53 [facility] (Rec: 02/06/19 18:59 [facility] [id number]) Out-Patient Physical Therapy Visit Information Visit Information Visit Type Treatment Note Visit Start Time 16:48 Visit Stop Time 17:43 Total Visit Minutes 55 Visit Number 7 Number of STOCK RECEIVER Visits 0 PT-OP-B Current Condition Start: 12/19/18 18:57 Freq: Status: Active Protocol: Document 12/20/18 16:46 [facility] (Rec: 12/20/18 17:55 [facility] [id number]) Current Condition History of Current Condition Onset Date october Current Complaints neck and L scapular pain History of Current Condition Pt reports pain in L inf angle of scapula and it feels like it goes into a spasm when working out starting in October. Pt reports she feels like she overcompensated and now her R UT region & neck has been painful. pt reports after hiking, she had pain into groin in October that is now having pain down into leg. Pt reports she uses the TRX bands and that sometimes causes the shoulder pain. Pt reprots she sometimes would lose feeling in hands and had elbow pain that in the last week has been better. Pt tried some weight liftingt his week and has been doing okay. Pt is limiting her workouts now d/t pain. Prior Treatments and Tests none Treatment Goals Patient/Caregiver Goals Dec pain, be able to be able to return to full exercising without limit, be able to work comfortably Prior Functional Status Baseline Function- Recreation/Hobbies Cardio step aeorbics, road biking, rowing, strength training (free weights, sand bags & TRX straps) , eat the frog workout PT-OP-C Subjective Start: 12/19/18 18:57 Freq: Status: Active Protocol: Document 02/06/19 18:53 [facility] (Rec: 02/06/19 18:59 [facility] [id number]) OP-PT Subjective Patient Comments Patient Comments Pt reports soreness for a couple days after last session but feeling better after. PT-OP-F Manual Assessment Start: 12/19/18 18:57 Freq: Status: Active Protocol: Document 12/20/18 16:46 [facility] (Rec: 12/20/18 18:07 [facility] [id number]) Manual Assessments Soft Tissue Assessment Soft Tissue Mobility Assessment tightness in L sided thoracic paraspinals, B UT, LS, cervical paraspinals, scalenes & pecs tight Joint Mobility Assessment Joint Mobility Assessment elevated 1st rib PT-OP-J Posture/Palpation/Skin Start: 12/19/18 18:57 Freq: Status: Active Protocol: Document 12/20/18 16:46 [facility] (Rec: 12/20/18 17:55 [facility] [id number]) Posture Evaluation [facility] Postural Classification System [place] Postural Classifications Posterior/Posterior Vertebral Compression Test 0 Elbow Flexion Test 1 Lumbar Protective Mechanism Left AP 1 Lumbar Protective Mechanism Right AP 0 Lumbar Protective Mechanism Left PA 1 Lumbar Protective Mechanism Right PA 1 PT-OP-K Range of Motion Start: 12/19/18 18:57 Freq: Status: Active Protocol: Document 12/20/18 16:46 [facility] (Rec: 12/20/18 17:55 [facility] [id number]) Cervical Spine Range of Motion Cervical Spine Active Degrees Flexion 45 Extension 55 Rotation Left 66 Rotation Right 65 Lateral Flexion Left 30 Lateral Flexion Right 25 ROM Limitations Soft Tissue Tightness Shoulder Goniometric Range of Motion Shoulder Left Active Testing Position Standing Flexion 162 Extension 50 Abduction 171 External Rotation at 90 degrees 120 Abduction External Rotation at 0 degrees Abduction 90 Internal Rotation 59 Internal Rotation Behind Back (text) T7 Right Active Testing Position Standing Flexion 155 Extension 52 Abduction 180 External Rotation at 90 degrees 120 Abduction External Rotation at 0 degrees Abduction 60 Internal Rotation 65 Internal Rotation Behind Back (text) T7 Shoulder ROM Limitations Comments pain & tightness with flex, IR & ER & ext into UT region R PT-OP-M Strength Start: 12/19/18 18:57 Freq: Status: Active Protocol: Document 12/20/18 16:46 [facility] (Rec: 12/20/18 17:55 [facility] [id number]) Shoulder Strength Shoulder Manual Muscle Testing Left Flexion 4+ Good+ Extension 4+ Good+ Abduction (C5) 4+ Good+ External Rotation 4+ Good+ Internal Rotation 5 Normal Right Flexion 5 Normal Extension 4+ Good+ Abduction (C5) 5 Normal External Rotation 4 Good Internal Rotation 4+ Good+ PT-OP-Q Treatments Start: 12/19/18 18:57 Freq: Status: Active Protocol: Document 02/06/19 18:53 [facility] (Rec: 02/06/19 18:59 [facility] [id number]) Therapeutic Exercises Supine Exercises axial elongation Supine Exercise Name w/o hand support Reps/Minutes 3 sec x 2 Prone Exercises over tball Prone Exercise Name Habd & scaption Side bilateral Reps/Minutes 15 ea Comments focus on neutral head position Standing Exercises flex Standing Exercise Name w/Habd for retract Side bilateral Reps/Minutes 12 ER Side bilateral Equipment Used L2 Reps/Minutes 10 Comments focus on scap retraction row Side bilateral Equipment Used L3 Reps/Minutes 10 Comments focus on no UT engagment Manual Therapy Treatment Soft Tissue Mobilization SOR Body Location SOR Mobilization Type Sustained Pressure Intensity/Depth Moderate UT Body Location B UT & scalenes & cervical paraspinals Mobilization Type Rolling Intensity/Depth Moderate Joint Mobilizations SC Joint R Direction inf FM cervical Joint C4 VIOLA, C3 &4 transverse L FM 1st rib Joint R Direction inf FM PT-OP-R Modalities Start: 12/19/18 18:57 Freq: Status: Active Protocol: Document 02/06/19 18:53 [facility] (Rec: 02/06/19 18:59 [facility] [id number]) Hot Pack/Cold Pack Treatment Hot Pack Location cervical Patient Position Hooklying Treatment Duration (minutes) 15 PT-OP-T Assessment and Plan Start: 12/19/18 18:57 Freq: Status: Active Protocol: Document 02/06/19 18:53 [facility] (Rec: 02/06/19 18:59 [facility] [id number]) Physical Therapy Assessment Goals DASH [facility] Goal (LTG) Pt will score 5 or less of DASH to show ability for full return to activities without pain. LTG Duration 02/19/19 activities Short Term Goal (STG) Pt will be indep with HEP STG Duration 01/20/19 Narcotics Investigator Goal (LTG) Pt will be able to return to typical workouts without inc neck or shoulder or UE pain. LTG Duration 02/19/19 posture Short Term Goal (STG) Pt will present with good seated and standing posture without cueing. STG Duration 01/20/19 Narcotics Investigator Goal (LTG) Pt will have 5/5 LPM, EFT & VCT in order to demonstrate improved core stability and postural stability and efficiency in order to participate in work and other dynamic standing and sitting activities without pain. LTG Duration 02/19/19 Assessment Summary Assessment Pt improved with ability to activate appropriate scapular stability mm today without UT engagement but required significant cueing for faciliation & neck positioning . Significant post scalene tightness today that improved iwth STM and after jt mobs improved R rotation Physical Therapy Plan Frequency and Duration Frequency of Treatment 1-2x/week Duration of Treatment 2 months Plan of Care Start Date 12/20/18 Plan of Care End Date 02/19/19 Next Visit Focus/Plan Next Note Type Progress Note Next Visit Plan cont to work on postural stability w/o UT engagment & cervical stability
--- NOTE | 2019-02-14 18:19 | PT.OTN ---
Current Diagnoses Cervicalgia (02/14/19) Other specified disorders of bone, shoulder (02/14/19) Abnormal posture (02/14/19) Weakness (02/14/19) Physical Therapy Treatment Note PT-OP-A Visit Information Start: 12/19/18 18:57 Freq: Status: Active Protocol: Document 02/14/19 16:46 [facility] (Rec: 02/14/19 18:19 [facility] [id number]) Out-Patient Physical Therapy Visit Information Visit Information Visit Type Treatment Note Visit Start Time 16:48 Visit Stop Time 17:45 Total Visit Minutes 57 Visit Number 8 Number of COREMAKER EXPERIMENTAL Visits 0 PT-OP-B Current Condition Start: 12/19/18 18:57 Freq: Status: Active Protocol: Document 12/20/18 16:46 [facility] (Rec: 12/20/18 17:55 [facility] [id number]) Current Condition History of Current Condition Onset Date october Current Complaints neck and L scapular pain History of Current Condition Pt reports pain in L inf angle of scapula and it feels like it goes into a spasm when working out starting in October. Pt reports she feels like she overcompensated and now her R UT region & neck has been painful. pt reports after hiking, she had pain into groin in October that is now having pain down into leg. Pt reports she uses the TRX bands and that sometimes causes the shoulder pain. Pt reprots she sometimes would lose feeling in hands and had elbow pain that in the last week has been better. Pt tried some weight liftingt his week and has been doing okay. Pt is limiting her workouts now d/t pain. Prior Treatments and Tests none Treatment Goals Patient/Caregiver Goals Dec pain, be able to be able to return to full exercising without limit, be able to work comfortably Prior Functional Status Baseline Function- Recreation/Hobbies Cardio step aeorbics, road biking, rowing, strength training (free weights, sand bags & TRX straps) , eat the frog workout PT-OP-C Subjective Start: 12/19/18 18:57 Freq: Status: Active Protocol: Document 02/14/19 16:46 [facility] (Rec: 02/14/19 18:19 [facility] [id number]) OP-PT Subjective Patient Comments Patient Comments No scap pain only occasional neck pain sometimes after workouts. Hurt her buttocks running this weekend and her back with side plank push ups last week. Patient Reported Progress Improving PT-OP-F Manual Assessment Start: 12/19/18 18:57 Freq: Status: Active Protocol: Document 12/20/18 16:46 [facility] (Rec: 12/20/18 18:07 [facility] [id number]) Manual Assessments Soft Tissue Assessment Soft Tissue Mobility Assessment tightness in L sided thoracic paraspinals, B UT, LS, cervical paraspinals, scalenes & pecs tight Joint Mobility Assessment Joint Mobility Assessment elevated 1st rib PT-OP-J Posture/Palpation/Skin Start: 12/19/18 18:57 Freq: Status: Active Protocol: Document 02/14/19 16:46 [facility] (Rec: 02/14/19 18:19 [facility] [id number]) Posture Evaluation [facility] Postural Classification System Vertebral Compression Test 5 Elbow Flexion Test 5 Lumbar Protective Mechanism Left AP 1 Lumbar Protective Mechanism Right AP 1 Lumbar Protective Mechanism Left PA 1 Lumbar Protective Mechanism Right PA 1 PT-OP-K Range of Motion Start: 12/19/18 18:57 Freq: Status: Active Protocol: Document 12/20/18 16:46 [facility] (Rec: 12/20/18 17:55 [facility] [id number]) Cervical Spine Range of Motion Cervical Spine Active Degrees Flexion 45 Extension 55 Rotation Left 66 Rotation Right 65 Lateral Flexion Left 30 Lateral Flexion Right 25 ROM Limitations Soft Tissue Tightness Shoulder Goniometric Range of Motion Shoulder Left Active Testing Position Standing Flexion 162 Extension 50 Abduction 171 External Rotation at 90 degrees 120 Abduction External Rotation at 0 degrees Abduction 90 Internal Rotation 59 Internal Rotation Behind Back (text) T7 Right Active Testing Position Standing Flexion 155 Extension 52 Abduction 180 External Rotation at 90 degrees 120 Abduction External Rotation at 0 degrees Abduction 60 Internal Rotation 65 Internal Rotation Behind Back (text) T7 Shoulder ROM Limitations Comments pain & tightness with flex, IR & ER & ext into UT region R PT-OP-M Strength Start: 12/19/18 18:57 Freq: Status: Active Protocol: Document 12/20/18 16:46 [facility] (Rec: 12/20/18 17:55 [facility] [id number]) Shoulder Strength Shoulder Manual Muscle Testing Left Flexion 4+ Good+ Extension 4+ Good+ Abduction (C5) 4+ Good+ External Rotation 4+ Good+ Internal Rotation 5 Normal Right Flexion 5 Normal Extension 4+ Good+ Abduction (C5) 5 Normal External Rotation 4 Good Internal Rotation 4+ Good+ PT-OP-Q Treatments Start: 12/19/18 18:57 Freq: Status: Active Protocol: Document 02/14/19 16:46 [facility] (Rec: 02/14/19 18:19 [facility] [id number]) Therapeutic Exercises Supine Exercises axial elongation Supine Exercise Name w/o hand support Reps/Minutes 5 sec x 2 Prone Exercises plank Prone Exercise Name hands and feet and forearms and feet Reps/Minutes 30 sec x2 ea Comments for scap & head position over tball Prone Exercise Name Habd & scaption Side bilateral Equipment Used 0,2# Reps/Minutes 2x10 Comments focus on neutral head position Sidelying Exercises side plank Sidelying Exercise Name hands and feet and forearms and feet Side bilateral Reps/Minutes 30 sec ea Comments for scap & head position Standing Exercises row Standing Exercise Name on bosu Side bilateral Equipment Used L3 Reps/Minutes 15 Comments focus on no UT engagment Therapeutic Activity Therapeutic Activity posture Name standing Manual Therapy Treatment Soft Tissue Mobilization SOR Body Location SOR Mobilization Type Sustained Pressure Intensity/Depth Moderate UT Body Location B UT & scalenes & cervical paraspinals Mobilization Type Rolling Intensity/Depth Moderate PT-OP-R Modalities Start: 12/19/18 18:57 Freq: Status: Active Protocol: Document 02/14/19 16:46 [facility] (Rec: 02/14/19 18:19 [facility] [id number]) Hot Pack/Cold Pack Treatment Hot Pack Location cervical & thoracic Patient Position Hooklying Treatment Duration (minutes) 15 PT-OP-T Assessment and Plan Start: 12/19/18 18:57 Freq: Status: Active Protocol: Document 02/14/19 16:46 [facility] (Rec: 02/14/19 18:19 [facility] [id number]) Physical Therapy Assessment Goals DASH Longterm Goal (LTG) Pt will score 5 or less of DASH to show ability for full return to activities without pain. LTG Duration 04/04-improving activities Short Term Goal (STG) Pt will be indep with HEP STG Duration achieved Longterm Goal (LTG) Pt will be able to return to typical workouts without inc neck or shoulder or UE pain. LTG Duration 03/17/19-improving posture Short Term Goal (STG) Pt will present with good seated and standing posture without cueing. STG Duration 02/28/19-improving cueing needed Longterm Goal (LTG) Pt will have 5/5 LPM, EFT & VCT in order to demonstrate improved core stability and postural stability and efficiency in order to participate in work and other dynamic standing and sitting activities without pain. LTG Duration 03/17/19 Assessment Summary Assessment Pt cont to require cueing for scapular engagement to avoid excessive cervical mm involvement with UE activities . She is improving in her ability to activate and requires less cueing today. SHe is improving with posture and is able to assume good posture with cuieng. Physical Therapy Plan Frequency and Duration Frequency of Treatment 1-2x/week Duration of Treatment 1 month Plan of Care Start Date 02/14/19 Plan of Care End Date 03/17/19 Therapeutic Interventions Therapeutic Interventions Aquatic Therapy,Balance Training,Gait Training,Home Exercise Program,Joint Mobilizations,Manual Therapy, Neuromuscular Re-education, Patient/Caregiver Education, Self-Care/Home Management,Soft Tissue Mobilization,Taping, Therapeutic Activities, Therapeutic Exercises Modalities Cold Pack/Ice Massage,Electric Stimulation,Hot Packs, Infrared Therapy,Iontophoresis ,Traction- Mechanical, Ultrasound Next Visit Focus/Plan Next Note Type Treatment Note Next Visit Plan cont to work on postural stability w/o UT engagment & cervical stability
--- NOTE | 2019-02-14 18:19 | PT.OPPOC ---
Current Diagnoses Cervicalgia (02/14/19) Other specified disorders of bone, shoulder (02/14/19) Abnormal posture (02/14/19) Weakness (02/14/19) Visit Care Team Role Provider Type Real Johnson MD Primary Care Provider Physician Specialty: [facility] Practice Address: [address] [place] [address], [place], [address] Email: [email or web address] NANCY Smith Attending Provider Advanced Lithograph Press Feeder Specialty: [facility] Address: [address] [place] [address], [place], [address] Email: [email or web address] Plan Of Care PT-OP-T Assessment and Plan Start: 12/19/18 18:57 Freq: Status: Active Protocol: Document 02/14/19 16:46 [facility] (Rec: 02/14/19 18:19 [facility] [id number]) Physical Therapy Assessment Goals DASH Prison Goal (LTG) Pt will score 5 or less of DASH to show ability for full return to activities without pain. LTG Duration 04/04-improving activities Short Term Goal (STG) Pt will be indep with HEP STG Duration achieved Folding Machine Operator Goal (LTG) Pt will be able to return to typical workouts without inc neck or shoulder or UE pain. LTG Duration 03/17/19-improving posture Short Term Goal (STG) Pt will present with good seated and standing posture without cueing. STG Duration 02/28/19-improving cueing needed Prison Goal (LTG) Pt will have 5/5 LPM, EFT & VCT in order to demonstrate improved core stability and postural stability and efficiency in order to participate in work and other dynamic standing and sitting activities without pain. LTG Duration 03/17/19 Assessment Summary Assessment Pt cont to require cueing for scapular engagement to avoid excessive cervical mm involvement with UE activities . She is improving in her ability to activate and requires less cueing today. SHe is improving with posture and is able to assume good posture with cuieng. Physical Therapy Plan Frequency and Duration Frequency of Treatment 1-2x/week Duration of Treatment 1 month Plan of Care Start Date 02/14/19 Plan of Care End Date 03/17/19 Therapeutic Interventions Therapeutic Interventions Aquatic Therapy,Balance Training,Gait Training,Home Exercise Program,Joint Mobilizations,Manual Therapy, Neuromuscular Re-education, Patient/Caregiver Education, Self-Care/Home Management,Soft Tissue Mobilization,Taping, Therapeutic Activities, Therapeutic Exercises Modalities Cold Pack/Ice Massage,Electric Stimulation,Hot Packs, Infrared Therapy,Iontophoresis ,Traction- Mechanical, Ultrasound Next Visit Focus/Plan Next Note Type Treatment Note Next Visit Plan cont to work on postural stability w/o UT engagment & cervical stability Plan of Care Dates Plan of Care Start Date 02/14/19 Plan of Care End Date 03/17/19
--- NOTE | 2019-02-22 18:43 | PT.OTN ---
Current Diagnoses Cervicalgia (02/22/19) Other specified disorders of bone, shoulder (02/22/19) Abnormal posture (02/22/19) Weakness (02/22/19) Physical Therapy Treatment Note PT-OP-A Visit Information Start: 12/19/18 18:57 Freq: Status: Active Protocol: Document 02/22/19 18:36 [facility] (Rec: 02/22/19 18:43 [facility] [id number]) Out-Patient Physical Therapy Visit Information Visit Information Visit Type Treatment Note Visit Start Time 17:33 Visit Stop Time 18:32 Total Visit Minutes 59 Visit Number 9 Number of FLANGING ROLL OPERATOR Visits 0 PT-OP-B Current Condition Start: 12/19/18 18:57 Freq: Status: Active Protocol: Document 12/20/18 16:46 [facility] (Rec: 12/20/18 17:55 [facility] [id number]) Current Condition History of Current Condition Onset Date october Current Complaints neck and L scapular pain History of Current Condition Pt reports pain in L inf angle of scapula and it feels like it goes into a spasm when working out starting in October. Pt reports she feels like she overcompensated and now her R UT region & neck has been painful. pt reports after hiking, she had pain into groin in October that is now having pain down into leg. Pt reports she uses the TRX bands and that sometimes causes the shoulder pain. Pt reprots she sometimes would lose feeling in hands and had elbow pain that in the last week has been better. Pt tried some weight liftingt his week and has been doing okay. Pt is limiting her workouts now d/t pain. Prior Treatments and Tests none Treatment Goals Patient/Caregiver Goals Dec pain, be able to be able to return to full exercising without limit, be able to work comfortably Prior Functional Status Baseline Function- Recreation/Hobbies Cardio step aeorbics, road biking, rowing, strength training (free weights, sand bags & TRX straps) , eat the frog workout PT-OP-C Subjective Start: 12/19/18 18:57 Freq: Status: Active Protocol: Document 02/22/19 18:36 [facility] (Rec: 02/22/19 18:42 [facility] [id number]) OP-PT Subjective Patient Comments Patient Comments Pt reports she has questions on plank. Notes she has had some thoracic paina gain. Notes mostly her neck bothering her though PT-OP-F Manual Assessment Start: 12/19/18 18:57 Freq: Status: Active Protocol: Document 12/20/18 16:46 [facility] (Rec: 12/20/18 18:07 [facility] [id number]) Manual Assessments Soft Tissue Assessment Soft Tissue Mobility Assessment tightness in L sided thoracic paraspinals, B UT, LS, cervical paraspinals, scalenes & pecs tight Joint Mobility Assessment Joint Mobility Assessment elevated 1st rib PT-OP-J Posture/Palpation/Skin Start: 12/19/18 18:57 Freq: Status: Active Protocol: Document 02/14/19 16:46 [facility] (Rec: 02/14/19 18:19 [facility] [id number]) Posture Evaluation [facility] Postural Classification System Vertebral Compression Test 5 Elbow Flexion Test 5 Lumbar Protective Mechanism Left AP 1 Lumbar Protective Mechanism Right AP 1 Lumbar Protective Mechanism Left PA 1 Lumbar Protective Mechanism Right PA 1 PT-OP-K Range of Motion Start: 12/19/18 18:57 Freq: Status: Active Protocol: Document 12/20/18 16:46 [facility] (Rec: 12/20/18 17:55 [facility] [id number]) Cervical Spine Range of Motion Cervical Spine Active Degrees Flexion 45 Extension 55 Rotation Left 66 Rotation Right 65 Lateral Flexion Left 30 Lateral Flexion Right 25 ROM Limitations Soft Tissue Tightness Shoulder Goniometric Range of Motion Shoulder Left Active Testing Position Standing Flexion 162 Extension 50 Abduction 171 External Rotation at 90 degrees 120 Abduction External Rotation at 0 degrees Abduction 90 Internal Rotation 59 Internal Rotation Behind Back (text) T7 Right Active Testing Position Standing Flexion 155 Extension 52 Abduction 180 External Rotation at 90 degrees 120 Abduction External Rotation at 0 degrees Abduction 60 Internal Rotation 65 Internal Rotation Behind Back (text) T7 Shoulder ROM Limitations Comments pain & tightness with flex, IR & ER & ext into UT region R PT-OP-M Strength Start: 12/19/18 18:57 Freq: Status: Active Protocol: Document 12/20/18 16:46 [facility] (Rec: 12/20/18 17:55 [facility] [id number]) Shoulder Strength Shoulder Manual Muscle Testing Left Flexion 4+ Good+ Extension 4+ Good+ Abduction (C5) 4+ Good+ External Rotation 4+ Good+ Internal Rotation 5 Normal Right Flexion 5 Normal Extension 4+ Good+ Abduction (C5) 5 Normal External Rotation 4 Good Internal Rotation 4+ Good+ PT-OP-Q Treatments Start: 12/19/18 18:57 Freq: Status: Active Protocol: Document 02/22/19 18:36 [facility] (Rec: 02/22/19 18:42 [facility] [id number]) Therapeutic Exercises Prone Exercises plank Prone Exercise Name forearms & feet Reps/Minutes 30 secx3 Comments cueing for scap & head position Sidelying Exercises side plank Sidelying Exercise Name forearm & feet Side bilateral Reps/Minutes 30 sec ea Comments for scap & head position Standing Exercises row Standing Exercise Name on bosu Side bilateral Equipment Used L3 Reps/Minutes 15 Comments focus on no UT engagment Manual Therapy Treatment Joint Mobilizations cervical Joint C1 transverse glide R, C4-5 transverse glide R FM thoracic Joint T1-3 FM transverse R; UPA L T5 -10 FM Self-Care/Home Management Treatment Education Other Education arms resting at side for desk set up PT-OP-R Modalities Start: 12/19/18 18:57 Freq: Status: Active Protocol: Document 02/22/19 18:36 [facility] (Rec: 02/22/19 18:42 [facility] [id number]) Hot Pack/Cold Pack Treatment Hot Pack Location cervical & thoracic Patient Position Hooklying Treatment Duration (minutes) 10 PT-OP-T Assessment and Plan Start: 12/19/18 18:57 Freq: Status: Active Protocol: Document 02/22/19 18:36 [facility] (Rec: 02/22/19 18:42 [facility] [id number]) Physical Therapy Assessment Goals DASH Senior Business Development Manager Goal (LTG) Pt will score 5 or less of DASH to show ability for full return to activities without pain. LTG Duration 04/04-improving activities Short Term Goal (STG) Pt will be indep with HEP STG Duration achieved Residential Goal (LTG) Pt will be able to return to typical workouts without inc neck or shoulder or UE pain. LTG Duration 03/17/19-improving posture Short Term Goal (STG) Pt will present with good seated and standing posture without cueing. STG Duration 02/28/19-improving cueing needed Senior Business Development Manager Goal (LTG) Pt will have 5/5 LPM, EFT & VCT in order to demonstrate improved core stability and postural stability and efficiency in order to participate in work and other dynamic standing and sitting activities without pain. LTG Duration 03/17/19 Assessment Summary Assessment Pt cont to require cueing for approrpirate plank position. She required min cueing for posture during standing exercise though. She improved with cervical rotation to L from 60% to 90%. Physical Therapy Plan Frequency and Duration Frequency of Treatment 1-2x/week Duration of Treatment 1 month Plan of Care Start Date 02/14/19 Plan of Care End Date 03/17/19 Next Visit Focus/Plan Next Note Type Treatment Note Next Visit Plan cont to work on postural stability w/o UT engagment & cervical stability
--- NOTE | 2019-03-01 18:42 | PT.OTN ---
Current Diagnoses Cervicalgia (03/01/19) Other specified disorders of bone, shoulder (03/01/19) Abnormal posture (03/01/19) Weakness (03/01/19) Physical Therapy Treatment Note PT-OP-A Visit Information Start: 12/19/18 18:57 Freq: Status: Active Protocol: Document 03/01/19 18:32 [facility] (Rec: 03/01/19 18:42 [facility] [id number]) Out-Patient Physical Therapy Visit Information Visit Information Visit Type Treatment Note Visit Start Time 16:06 Visit Stop Time 16:59 Total Visit Minutes 53 Visit Number 10 Number of DIGITAL TECHNICIAN Visits 0 PT-OP-B Current Condition Start: 12/19/18 18:57 Freq: Status: Active Protocol: Document 12/20/18 16:46 [facility] (Rec: 12/20/18 17:55 [facility] [id number]) Current Condition History of Current Condition Onset Date october Current Complaints neck and L scapular pain History of Current Condition Pt reports pain in L inf angle of scapula and it feels like it goes into a spasm when working out starting in October. Pt reports she feels like she overcompensated and now her R UT region & neck has been painful. pt reports after hiking, she had pain into groin in October that is now having pain down into leg. Pt reports she uses the TRX bands and that sometimes causes the shoulder pain. Pt reprots she sometimes would lose feeling in hands and had elbow pain that in the last week has been better. Pt tried some weight liftingt his week and has been doing okay. Pt is limiting her workouts now d/t pain. Prior Treatments and Tests none Treatment Goals Patient/Caregiver Goals Dec pain, be able to be able to return to full exercising without limit, be able to work comfortably Prior Functional Status Baseline Function- Recreation/Hobbies Cardio step aeorbics, road biking, rowing, strength training (free weights, sand bags & TRX straps) , eat the frog workout PT-OP-C Subjective Start: 12/19/18 18:57 Freq: Status: Active Protocol: Document 03/01/19 18:32 [facility] (Rec: 03/01/19 18:42 [facility] [id number]) OP-PT Subjective Patient Comments Patient Comments Pt reports she is getting neck pain occasionally typically when waking up or after a days work. PT-OP-F Manual Assessment Start: 12/19/18 18:57 Freq: Status: Active Protocol: Document 12/20/18 16:46 [facility] (Rec: 12/20/18 18:07 [facility] [id number]) Manual Assessments Soft Tissue Assessment Soft Tissue Mobility Assessment tightness in L sided thoracic paraspinals, B UT, LS, cervical paraspinals, scalenes & pecs tight Joint Mobility Assessment Joint Mobility Assessment elevated 1st rib PT-OP-J Posture/Palpation/Skin Start: 12/19/18 18:57 Freq: Status: Active Protocol: Document 02/14/19 16:46 [facility] (Rec: 02/14/19 18:19 [facility] [id number]) Posture Evaluation [place] Postural Classification System Vertebral Compression Test 5 Elbow Flexion Test 5 Lumbar Protective Mechanism Left AP 1 Lumbar Protective Mechanism Right AP 1 Lumbar Protective Mechanism Left PA 1 Lumbar Protective Mechanism Right PA 1 PT-OP-K Range of Motion Start: 12/19/18 18:57 Freq: Status: Active Protocol: Document 12/20/18 16:46 [facility] (Rec: 12/20/18 17:55 [facility] [id number]) Cervical Spine Range of Motion Cervical Spine Active Degrees Flexion 45 Extension 55 Rotation Left 66 Rotation Right 65 Lateral Flexion Left 30 Lateral Flexion Right 25 ROM Limitations Soft Tissue Tightness Shoulder Goniometric Range of Motion Shoulder Left Active Testing Position Standing Flexion 162 Extension 50 Abduction 171 External Rotation at 90 degrees 120 Abduction External Rotation at 0 degrees Abduction 90 Internal Rotation 59 Internal Rotation Behind Back (text) T7 Right Active Testing Position Standing Flexion 155 Extension 52 Abduction 180 External Rotation at 90 degrees 120 Abduction External Rotation at 0 degrees Abduction 60 Internal Rotation 65 Internal Rotation Behind Back (text) T7 Shoulder ROM Limitations Comments pain & tightness with flex, IR & ER & ext into UT region R PT-OP-M Strength Start: 12/19/18 18:57 Freq: Status: Active Protocol: Document 12/20/18 16:46 [facility] (Rec: 12/20/18 17:55 [facility] [id number]) Shoulder Strength Shoulder Manual Muscle Testing Left Flexion 4+ Good+ Extension 4+ Good+ Abduction (C5) 4+ Good+ External Rotation 4+ Good+ Internal Rotation 5 Normal Right Flexion 5 Normal Extension 4+ Good+ Abduction (C5) 5 Normal External Rotation 4 Good Internal Rotation 4+ Good+ PT-OP-Q Treatments Start: 12/19/18 18:57 Freq: Status: Active Protocol: Document 03/01/19 18:32 [facility] (Rec: 03/01/19 18:42 [facility] [id number]) Therapeutic Exercises Prone Exercises plank Prone Exercise Name forearms & feet & hands & feet Comments cueing for scap & head position Manual Therapy Treatment Soft Tissue Mobilization UT Body Location B UT & scalenes &SCM & cervical paraspinals Mobilization Type Rolling Intensity/Depth Moderate Joint Mobilizations SC Joint L Direction caudal FM 1st rib Joint L Direction AP & caudal FM Self-Care/Home Management Treatment Education Patient Education Posture PT-OP-R Modalities Start: 12/19/18 18:57 Freq: Status: Active Protocol: Document 03/01/19 18:32 [facility] (Rec: 03/01/19 18:42 [facility] [id number]) Hot Pack/Cold Pack Treatment Hot Pack Location cervical & thoracic Patient Position Hooklying Treatment Duration (minutes) 10 PT-OP-T Assessment and Plan Start: 12/19/18 18:57 Freq: Status: Active Protocol: Document 03/01/19 18:32 [facility] (Rec: 03/01/19 18:42 [facility] [id number]) Physical Therapy Assessment Goals DASH Care Home Goal (LTG) Pt will score 5 or less of DASH to show ability for full return to activities without pain. LTG Duration 04/04-improving activities Short Term Goal (STG) Pt will be indep with HEP STG Duration achieved Care Home Goal (LTG) Pt will be able to return to typical workouts without inc neck or shoulder or UE pain. LTG Duration 03/17/19-improving posture Short Term Goal (STG) Pt will present with good seated and standing posture without cueing. STG Duration 02/28/19-improving cueing needed Firefighting Equipment Specialist Goal (LTG) Pt will have 5/5 LPM, EFT & VCT in order to demonstrate improved core stability and postural stability and efficiency in order to participate in work and other dynamic standing and sitting activities without pain. LTG Duration 03/17/19 Assessment Summary Assessment Pt cont to reuqire cuieng for plank more on forearms then on hands. She cont to have inc kyphosis with inc lordosis when planking which requires cueing. Discussed with pt importance of posture & to check on herself throughout day. She does improve with cervical tightness with soft tissue mobs & jt mobs. Physical Therapy Plan Frequency and Duration Frequency of Treatment 1-2x/week Duration of Treatment 1 month Plan of Care Start Date 02/14/19 Plan of Care End Date 03/17/19 Next Visit Focus/Plan Next Note Type Treatment Note Next Visit Plan cont to work on postural stability w/o UT engagment & cervical stability; PNF scapular
--- NOTE | 2019-03-13 19:09 | PT.OTN ---
Current Diagnoses Cervicalgia (03/13/19) Other specified disorders of bone, shoulder (03/13/19) Abnormal posture (03/13/19) Weakness (03/13/19) Physical Therapy Treatment Note PT-OP-A Visit Information Start: 12/19/18 18:57 Freq: Status: Active Protocol: Document 03/13/19 16:05 [facility] (Rec: 03/13/19 19:08 [facility] [id number]) Out-Patient Physical Therapy Visit Information Visit Information Visit Type Progress Note Visit Start Time 16:00 Visit Stop Time 16:45 Total Visit Minutes 45 Visit Number 11 Number of RAIL TRANSPORTATION TABELER Visits 0 PT-OP-B Current Condition Start: 12/19/18 18:57 Freq: Status: Active Protocol: Document 12/20/18 16:46 [facility] (Rec: 12/20/18 17:55 [facility] [id number]) Current Condition History of Current Condition Onset Date october Current Complaints neck and L scapular pain History of Current Condition Pt reports pain in L inf angle of scapula and it feels like it goes into a spasm when working out starting in October. Pt reports she feels like she overcompensated and now her R UT region & neck has been painful. pt reports after hiking, she had pain into groin in October that is now having pain down into leg. Pt reports she uses the TRX bands and that sometimes causes the shoulder pain. Pt reprots she sometimes would lose feeling in hands and had elbow pain that in the last week has been better. Pt tried some weight liftingt his week and has been doing okay. Pt is limiting her workouts now d/t pain. Prior Treatments and Tests none Treatment Goals Patient/Caregiver Goals Dec pain, be able to be able to return to full exercising without limit, be able to work comfortably Prior Functional Status Baseline Function- Recreation/Hobbies Cardio step aeorbics, road biking, rowing, strength training (free weights, sand bags & TRX straps) , eat the frog workout PT-OP-C Subjective Start: 12/19/18 18:57 Freq: Status: Active Protocol: Document 03/13/19 16:05 [facility] (Rec: 03/13/19 19:08 [facility] [id number]) OP-PT Subjective Patient Comments Patient Comments Pt reports typically neck pain is after work or when she wakes up. Sleeping on stomach Patient Questionnaires Neck Disability Index NDI Score 13 Quick Dash- Upper Extremity Quick Dash UE Score 6 PT-OP-F Manual Assessment Start: 12/19/18 18:57 Freq: Status: Active Protocol: Document 12/20/18 16:46 [facility] (Rec: 12/20/18 18:07 [facility] [id number]) Manual Assessments Soft Tissue Assessment Soft Tissue Mobility Assessment tightness in L sided thoracic paraspinals, B UT, LS, cervical paraspinals, scalenes & pecs tight Joint Mobility Assessment Joint Mobility Assessment elevated 1st rib PT-OP-J Posture/Palpation/Skin Start: 12/19/18 18:57 Freq: Status: Active Protocol: Document 03/13/19 16:05 [facility] (Rec: 03/13/19 16:50 [facility] [id number]) Posture Evaluation [facility] Postural Classification System Elbow Flexion Test 5 Lumbar Protective Mechanism Left AP 1 Lumbar Protective Mechanism Right AP 1 Lumbar Protective Mechanism Left PA 4 Lumbar Protective Mechanism Right PA 4 PT-OP-K Range of Motion Start: 12/19/18 18:57 Freq: Status: Active Protocol: Document 12/20/18 16:46 [facility] (Rec: 12/20/18 17:55 [facility] [id number]) Cervical Spine Range of Motion Cervical Spine Active Degrees Flexion 45 Extension 55 Rotation Left 66 Rotation Right 65 Lateral Flexion Left 30 Lateral Flexion Right 25 ROM Limitations Soft Tissue Tightness Shoulder Goniometric Range of Motion Shoulder Left Active Testing Position Standing Flexion 162 Extension 50 Abduction 171 External Rotation at 90 degrees 120 Abduction External Rotation at 0 degrees Abduction 90 Internal Rotation 59 Internal Rotation Behind Back (text) T7 Right Active Testing Position Standing Flexion 155 Extension 52 Abduction 180 External Rotation at 90 degrees 120 Abduction External Rotation at 0 degrees Abduction 60 Internal Rotation 65 Internal Rotation Behind Back (text) T7 Shoulder ROM Limitations Comments pain & tightness with flex, IR & ER & ext into UT region R PT-OP-M Strength Start: 12/19/18 18:57 Freq: Status: Active Protocol: Document 12/20/18 16:46 [facility] (Rec: 12/20/18 17:55 [facility] [id number]) Shoulder Strength Shoulder Manual Muscle Testing Left Flexion 4+ Good+ Extension 4+ Good+ Abduction (C5) 4+ Good+ External Rotation 4+ Good+ Internal Rotation 5 Normal Right Flexion 5 Normal Extension 4+ Good+ Abduction (C5) 5 Normal External Rotation 4 Good Internal Rotation 4+ Good+ PT-OP-Q Treatments Start: 12/19/18 18:57 Freq: Status: Active Protocol: Document 03/13/19 16:05 [facility] (Rec: 03/13/19 19:08 [facility] [id number]) Therapeutic Exercises Prone Exercises plank Prone Exercise Name forearms & feet & hands & feet Reps/Minutes 2x30 sec ea Comments cueing for scap & head position Standing Exercises wall press Standing Exercise Name w/staggered stance Side bilateral Comments focus on core & scap stability Therapeutic Activity Therapeutic Activity sleep position Comments s/l, partial prone, supine posture Comments edu and demo for use of pillow under arms for desk Manual Therapy Treatment Soft Tissue Mobilization SOR Body Location SOR Mobilization Type Sustained Pressure Intensity/Depth Moderate UT Body Location B UT & scalenes &SCM & cervical paraspinals Mobilization Type Rolling Intensity/Depth Moderate PT-OP-R Modalities Start: 12/19/18 18:57 Freq: Status: Active Protocol: Document 03/13/19 16:05 [facility] (Rec: 03/13/19 19:08 [facility] [id number]) Hot Pack/Cold Pack Treatment Hot Pack Location cervical & thoracic Patient Position Hooklying Treatment Duration (minutes) 10 PT-OP-T Assessment and Plan Start: 12/19/18 18:57 Freq: Status: Active Protocol: Document 03/13/19 16:05 [facility] (Rec: 03/13/19 19:08 [facility] [id number]) Physical Therapy Assessment Goals activity Short Term Goal (STG) Pt will be able to sleep without waking up with pain or d/t pain STG Duration 04/13/19 [facility] Goal (LTG) Pt will be able to work without inc pain at end of day in neck or shoulders LTG Duration 04/30/19 DASH Insurance Healthcare Consultant Goal (LTG) Pt will score 5 or less of DASH and NDI to show ability for full return to activities without pain. LTG Duration 04/04-improving almost fully achieved activities Short Term Goal (STG) Pt will be indep with HEP STG Duration achieved [facility] Goal (LTG) Pt will be able to return to typical workouts without inc neck or shoulder or UE pain. LTG Duration achieved posture Short Term Goal (STG) Pt will present with good seated and standing posture without cueing. STG Duration 03/31/19-improving min cueing needed Insurance Healthcare Consultant Goal (LTG) Pt will have 5/5 LPM, EFT & VCT in order to demonstrate improved core stability and postural stability and efficiency in order to participate in work and other dynamic standing and sitting activities without pain. 03/13-improving with PA stability LTG Duration 03/17/19 Assessment Summary Assessment Pt making good progress with her goals and is returning to working out without pain but notable pain in AM and when at desk. Pt cont to work on postural stability at this time to dec stress into neck & shoulders. Pt no longer has radicular pain or scapular pain, but pain is focused into neck and would benefit from cont PT to address this pain. Physical Therapy Plan Frequency and Duration Frequency of Treatment 1-2x/week Duration of Treatment 6 weeks Plan of Care Start Date 03/13/19 Plan of Care End Date 04/24/19 Therapeutic Interventions Therapeutic Interventions Home Exercise Program,Joint Mobilizations,Manual Therapy, Neuromuscular Re-education, Patient/Caregiver Education, Self-Care/Home Management,Soft Tissue Mobilization,Taping, Therapeutic Activities, Therapeutic Exercises Modalities Cold Pack/Ice Massage,Electric Stimulation,Hot Packs, Traction- Mechanical, Ultrasound Next Visit Focus/Plan Next Note Type Treatment Note Next Visit Plan PNF scapula, cont work on work positioning & scap stability
--- NOTE | 2019-03-13 19:09 | PT.OPPOC ---
Current Diagnoses Cervicalgia (03/13/19) Other specified disorders of bone, shoulder (03/13/19) Abnormal posture (03/13/19) Weakness (03/13/19) Visit Care Team Role Provider Type Real Johnson MD Primary Care Provider Physician Specialty: [facility] Practice Address: [address] [place] [address], [place], [address] Email: [email or web address] NANCY Smith Attending Provider Advanced Pump Installation And Servicer Specialty: [facility] Address: [address] [place] [address], [place], [address] Email: [email or web address] Plan Of Care PT-OP-T Assessment and Plan Start: 12/19/18 18:57 Freq: Status: Active Protocol: Document 03/13/19 16:05 [facility] (Rec: 03/13/19 19:08 [facility] [id number]) Physical Therapy Assessment Goals activity Short Term Goal (STG) Pt will be able to sleep without waking up with pain or d/t pain STG Duration 04/13/19 Director Of Coding Goal (LTG) Pt will be able to work without inc pain at end of day in neck or shoulders LTG Duration 04/30/19 DASH Mcc Goal (LTG) Pt will score 5 or less of DASH and NDI to show ability for full return to activities without pain. LTG Duration 04/04-improving almost fully achieved activities Short Term Goal (STG) Pt will be indep with HEP STG Duration achieved Mcc Goal (LTG) Pt will be able to return to typical workouts without inc neck or shoulder or UE pain. LTG Duration achieved posture Short Term Goal (STG) Pt will present with good seated and standing posture without cueing. STG Duration 03/31/19-improving min cueing needed Director Of Coding Goal (LTG) Pt will have 5/5 LPM, EFT & VCT in order to demonstrate improved core stability and postural stability and efficiency in order to participate in work and other dynamic standing and sitting activities without pain. 03/13-improving with PA stability LTG Duration 03/17/19 Assessment Summary Assessment Pt making good progress with her goals and is returning to working out without pain but notable pain in AM and when at desk. Pt cont to work on postural stability at this time to dec stress into neck & shoulders. Pt no longer has radicular pain or scapular pain, but pain is focused into neck and would benefit from cont PT to address this pain. Physical Therapy Plan Frequency and Duration Frequency of Treatment 1-2x/week Duration of Treatment 6 weeks Plan of Care Start Date 03/13/19 Plan of Care End Date 04/24/19 Therapeutic Interventions Therapeutic Interventions Home Exercise Program,Joint Mobilizations,Manual Therapy, Neuromuscular Re-education, Patient/Caregiver Education, Self-Care/Home Management,Soft Tissue Mobilization,Taping, Therapeutic Activities, Therapeutic Exercises Modalities Cold Pack/Ice Massage,Electric Stimulation,Hot Packs, Traction- Mechanical, Ultrasound Next Visit Focus/Plan Next Note Type Treatment Note Next Visit Plan PNF scapula, cont work on work positioning & scap stability Plan of Care Dates Plan of Care Start Date 03/13/19 Plan of Care End Date 04/24/19
== END 2019-03-14 16:00 ==
LOC: PHYS 16:00
PROVIDERS: PCP Family Medicine; Visit Provider Internal Medicine
DX: M89.8X1 Other specified disorders of bone, shoulder (principal); M54.2 Cervicalgia; R29.3 Abnormal posture; R53.1 Weakness
CPT/HCPCS: 97010; 97110; 97112; 97140; 97162; 97530

== ENCOUNTER → 2019-11-11 11:47 | Outpatient (CLI) | payer OTHER, SELFPAY ==
[2019-11-11 14:07] LABS: Free T3, Triiodothyronine Free 3.16 pg/mL (2.77-5.27); Free T4, Direct Thyroxine 1.12 ng/dL (0.78-2.19)
[2019-11-11 14:21] LABS: Thyroid Stimulating Hormone 0.172 uIU/mL (0.47-4.68)
== END ==
PROVIDERS: PCP Family Medicine; Referring Provider Family Medicine; Visit Provider Family Medicine
DX: E03.9 Hypothyroidism, unspecified (principal); E06.3 Autoimmune thyroiditis
CPT/HCPCS: 36415; 84439; 84443; 84481

== ENCOUNTER → 2020-01-10 15:45 | Outpatient (CLI) | payer OTHER, SELFPAY ==
--- NOTE | 2020-01-10 15:56 | DI.MG.S_ITS ---
Patient Name: ALVARO CARRILLO date: 1960 Sex: F Attending Physician: Alex Indications: Date: 01/10/2020 15:48 At the request of: CONNER GILES Procedure: MM screening mammo BI BILATERAL DIGITAL SCREENING MAMMOGRAM 3D/2D WITH CAD: 01/10/2020 Comparison is made to exams dated: 10/27/2018 mammogram, 10/19/2017 mammogram, 09/30/2016 mammogram, and 09/18/2016 mammogram - [facility]. There are scattered fibroglandular elements in both breasts. Current study was also evaluated with a Computer Aided Detection (CAD) system. No significant masses, calcifications, or other findings are seen in either breast. There has been no significant interval change. IMPRESSION: NEGATIVE There is no mammographic evidence of malignancy. A 1 year screening mammogram is recommended. This exam was interpreted at Station ID: [id number]. NOTE: For mammograms, a report in lay terms will be sent to the patient. Approximately 15% of breast malignancies will not be visualized mammographically. In the management of a palpable breast mass, a negative mammogram must not discourage biopsy of a clinically suspicious lesion. Electronically Signed By: Abdullahi bernardo/oniel:01/10/2020 16:03:54 letter sent: Normal Exam ACR BI-RADS Category 1: Negative 3341F
== END ==
PROVIDERS: PCP Family Medicine; Referring Provider Family Medicine; Visit Provider Family Medicine
DX: Z12.31 Encounter for screening mammogram for malignant neoplasm of breast (principal)
CPT/HCPCS: 77063; 77067

== ENCOUNTER → 2020-02-15 | Outpatient (CLI) | payer OTHER, SELFPAY | PROVIDERS: PCP Family Medicine; Referring Provider Internal Medicine; Visit Provider Internal Medicine | DX: Z23 Encounter for immunization (principal) | CPT/HCPCS: 90471; 90686 ==

== ENCOUNTER → 2020-02-24 10:09 | Outpatient (CLI) | payer OTHER, SELFPAY ==
[2020-02-24 11:42] LABS: Add Manual Diff / Slide Review NO; Basophils Absolute Auto 100 /uL (0-100); Basophils Percent Auto 0.9 % (0-2); Eosinophils Absolute Auto 100 /uL (0-450); Eosinophils Percent Auto 1.4 % (2-4); Hematocrit 40.1 % (36-46); Hemoglobin 13.5 g/dL (12.0-16.0); Lymphocytes Absolute Auto 1400 /uL (1100-4500); Lymphocytes Percent Auto 23.6 % (25-40); Mean Corpuscular HGB Conc 33.6 % (30-36); Mean Corpuscular Hemoglobin 31.3 PG (26-34); Mean Corpuscular Volume 93.2 fL (80-100); Monocytes Absolute Auto 400 /uL (0-900); Monocytes Percent Auto 6.9 % (3-14); Neutrophils Absolute Auto 4000 /uL (1500-7000); Neutrophils Percent Auto 67.2 % (50-75); Platelet Count 219 X10^3/uL (150-400); Red Cell Distribution Width 12.6 % (11.6-14.8)
[2020-02-24 11:56] LABS: Alanine Aminotransferase 15 IU/L (<35); Albumin 4.6 g/dL (3.5-5.0); Albumin Globulin Ratio 1.4 (1.0-2.8); Alkaline Phosphatase 60 U/L (38-126); Aspartate Aminotransferase 26 IU/L (14-36); BUN Creatinine Ratio 24.7 (6-22); Bilirubin Total 0.7 mg/dL (0.2-1.3); Blood Urea Nitrogen 22 mg/dL (7-17); Calcium 9.3 mg/dL (8.4-10.2); Carbon Dioxide 29 mmol/L (22-32); Chloride 105 mmol/L (98-107); Cholesterol 197 mg/dL (140-199); Estimated Glomerular Filt Rate > 60.0 mL/min (>60); Globulin 3.3 g/dL (1.7-4.1); Glucose 89 mg/dL (80-110); HDL Cholesterol 89 mg/dL (40-60); HEMOLYSIS < 15 (0-50); LDL Cholesterol Calculated 98 mg/dL (<100); Potassium 4.8 mmol/L (3.4-5.1); Sodium 141 mmol/L (137-145); Total Protein 7.9 g/dL (6.3-8.2); Triglycerides 49 mg/dL (35-150)
[2020-02-24 12:17] LABS: Free T3, Triiodothyronine Free 2.73 pg/mL (2.77-5.27); Free T4, Direct Thyroxine 1.16 ng/dL (0.78-2.19)
[2020-02-24 12:31] LABS: Thyroid Stimulating Hormone 0.377 uIU/mL (0.47-4.68)
== END ==
PROVIDERS: PCP Family Medicine; Referring Provider Family Medicine; Visit Provider Family Medicine
DX: Z00.00 Encounter for general adult medical examination without abnormal findings (principal); E03.9 Hypothyroidism, unspecified
CPT/HCPCS: 36415; 80053; 80061; 84439; 84443; 84481; 85025

== ENCOUNTER → 2020-03-11 09:41 | Outpatient (CLI) | payer OTHER, SELFPAY ==
--- NOTE | 2020-03-11 | DI.RAD.S_ITS ---
PROCEDURE: XR DEXA AXIAL SKELETON INDICATIONS: Asymptomatic menopausal state COMPARISON: [facility], CR, XR DEXA AXIAL SKELETON, 05/06/2018, 10:13. FINDINGS: This blank DEXA report has been sent in error by the PACS system. The correct and complete report will be forthcoming in 1-2 days. Thank you for your patience and understanding. Dictated by: Jojo Sung MD, PhD on 03/11/2020 at 15:56 Approved by: Jojo Sung MD, PhD on 03/11/2020 at 15:56
== END ==
PROVIDERS: PCP Family Medicine; Referring Provider Family Medicine; Visit Provider Family Medicine
DX: M81.0 Age-related osteoporosis without current pathological fracture (principal); Z78.0 Asymptomatic menopausal state; E07.9 Disorder of thyroid, unspecified; Z82.62 Family history of osteoporosis
CPT/HCPCS: 77080

== ENCOUNTER → 2020-06-25 16:23 | Outpatient (CLI) | payer OTHER, SELFPAY ==
--- NOTE | 2020-06-25 | DI.RAD.S_ITS ---
PROCEDURE: XR FOOT RT MIN 3V INDICATIONS: Right Foot Pain TECHNIQUE: 3 views of the foot were acquired. COMPARISON: None. FINDINGS: Bones: No fractures or dislocations. Moderate 1st MTP joint osteoarthritic changes are seen. No suspicious bony lesions. Soft tissues: No tibiotalar joint effusion. Achilles tendon appears normal. IMPRESSION: Moderate 1st MTP joint osteoarthritis. No fracture or dislocation. No suspicious bony lesion. Dictated by: Eriberto Siu M.D. on 06/25/2020 at 17:14 Approved by: Eriberto Siu M.D. on 06/25/2020 at 17:14
== END ==
PROVIDERS: PCP Family Medicine; Referring Provider Family Medicine; Visit Provider Family Medicine
DX: M79.672 Pain in left foot (principal); M19.071 Primary osteoarthritis, right ankle and foot
CPT/HCPCS: 73630

== ENCOUNTER → 2020-09-11 09:45 | Outpatient (CLI) | payer OTHER, SELFPAY ==
[2020-09-11 11:16] LABS: COVID19 -Nasal RAPID Negative (Negative)
== END ==
PROVIDERS: PCP Family Medicine; Visit Provider Student in an Organized Health Care Education/Training Program
DX: Z01.812 Encounter for preprocedural laboratory examination (principal); Z20.822 Contact with and (suspected) exposure to COVID-19
CPT/HCPCS: 87635

== ENCOUNTER → 2021-02-22 09:26 | Outpatient (CLI) | payer OTHER, SELFPAY ==
--- NOTE | 2021-02-22 09:26 | DI.MG.S_ITS ---
BILATERAL DIGITAL SCREENING MAMMOGRAM 3D/2D WITH CAD: 02/22/2021 CLINICAL: Routine screening. Comparison is made to exams dated: 01/10/2020 mammogram, 10/27/2018 mammogram, and 10/19/2017 mammogram - [facility]. There are scattered fibroglandular elements in both breasts. Current study was also evaluated with a Computer Aided Detection (CAD) system. No significant masses, calcifications, or other findings are seen in either breast. There has been no significant interval change. IMPRESSION: NEGATIVE There is no mammographic evidence of malignancy. A 1 year screening mammogram is recommended. This exam was interpreted at Station ID: [id number]. NOTE: For mammograms, a report in lay terms will be sent to the patient. Approximately 15% of breast malignancies will not be visualized mammographically. In the management of a palpable breast mass, a negative mammogram must not discourage biopsy of a clinically suspicious lesion. Electronically Signed By: Abdullahi Jha M.D. aty/oniel:02/22/2021 15:19:22 letter sent: Normal Exam ACR BI-RADS Category 1: Negative [id number]
== END ==
PROVIDERS: PCP Family Medicine; Referring Provider Family Medicine; Visit Provider Family Medicine
DX: Z12.31 Encounter for screening mammogram for malignant neoplasm of breast (principal)
CPT/HCPCS: 77063; 77067

== ENCOUNTER → 2021-03-12 08:43 | Outpatient (CLI) | payer OTHER, SELFPAY ==
[2021-03-12 13:07] LABS: COVID19 -Nasal RAPID Negative (Negative)
== END ==
PROVIDERS: PCP Family Medicine; Visit Provider Nurse Practitioner Family
DX: Z20.822 Contact with and (suspected) exposure to COVID-19 (principal)
CPT/HCPCS: 87635

== ENCOUNTER 2021-03-14 15:06 | Day surgery (SDC) | payer OTHER, SELFPAY ==
--- NOTE | 2021-03-14 11:49 | PM.HP.1 ---
History of Present Illness History of Present Illness Date Patient Seen: 03/14/21 Chief complaint: [facility] [place] Narrative: 60 Years Old Female seen today for consideration of a screening colonoscopy. Last colonoscopy 07/2009, significant for fissure and hemorrhoids. She is status post a fistulectomy, 2013. She does have IBS. There have been no lower GI symptoms suggesting disease such as change in bowel habits, bleeding, abdominal pain or anemia. Possible colon cancer in her brother at age 12. Overall health issues have been stable, including no major cardiac events for at least 6 weeks. 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 Patient History Family & Social History Tobacco & Substance use: Smoking Status Never smoker Meds Home Medications and Allergies Home Medications Medication Instructions Recorded Confirmed Type levothyroxine 50 mcg tablet 50 mcg PO QDAY@0600 #0 03/09/12 05/28/18 History (Synthroid) Allergies Allergy/AdvReac Type Severity Reaction Status Date / Time No Known Drug Allergies Allergy Verified 03/14/21 15:45 Review of Systems Review of Systems Narrative: All remaining ROS were reviewed and negative except as addressed. Exam Narrative Exam Narrative: GENERAL: Alert and oriented, appearing stated age and in no acute distress. HEENT: Head normocephalic/atraumatic. LUNGS: Clear to ausculation bilaterally, no wheezes, rhonchi or rales. CV: Normal S1 and S2 with regular rate and rhythm, no audible murmurs, rubs or gallops. ABDOMEN: Soft, non-tender, non-distended, no organomegaly. Positive bowel sounds. EXTREMITIES: No clubbing, cyanosis, or edema. NEURO: Cranial nerves II through XII grossly intact, no focal deficits. PSYCH: Alert and oriented x 3. SKIN: No concerning lesions. Assessment & Plan Assessment & Plan narrative: 1. Screening for colon cancer Plan for colonoscopy. The nature and character of the procedure as well as anticipated results were discussed. The possibility of not completing the procedure was also discussed. Possible complications including aspiration pneumonia, bleeding, perforation and reaction to medications either for sedation or preparation and missed lesions were discussed. Questions were answered and proceeding to the colonoscopy was elected. Informed consent signed. I sincerely appreciate the referral allowing me to participate in this patient's care. Please contact me with any questions or concerns.
--- NOTE | 2021-03-14 11:51 | PM.OP.COLON ---
Operative Date/Time/Diagnoses Date of procedure: 03/14/21 Procedure Notes SCOAP/Timeout: 4:26 p.m. Procedure in detail: ENDOSCOPIST: Sophia Serrano MD Sedation RN: Radha Tan RN Sedation start time: 4:27 p.m. Sedation end time: 4:46 p.m. PROCEDURE: Colonoscopy INDICATIONS: 1. Screening for colon cancer MEDICATION: Levsin 0.125 mg sublingual, incremental doses of Versed and fentanyl until appropriate level sedation achieved. ASA CLASS: 2 CECAL WITHDRAWAL TIME: 8 minutes COMPLICATIONS: None. EXTENT OF PROCEDURE: Cecum. QUALITY OF PREP: Good with portions of liquid stool. PROCEDURE: Prior to insertion of the colonoscope, a digital rectal examination was accomplished with circumferential palpation of the distal rectal mucosa without significant findings being noted. The high-definition pediatriccolonoscope was passed into the rectum in the usual fashion and advanced over to the cecum without difficulty. The ileocecal valve, appendiceal stoma, and medial wall all could be inspected and no abnormalities were seen. ASCENDING COLON: As the colonoscope was withdrawn, care was taken to expose and inspect the haustral folds and no abnormalities were seen. HEPATIC FLEXURE: Normal, no polyps, diverticula or other abnormalities. TRANSVERSE COLON: Normal, no polyps, diverticula or other abnormalities. DESCENDING COLON: Normal, no polyps, diverticula or other abnormalities. SIGMOID COLON: Normal, no polyps, diverticula or other abnormalities. RECTUM: Normal. J maneuver was produced. There was no significant perianal disease. The J maneuver was broken. The remainder of the rectum was inspected and there was no external hemorrhoid disease. The scope was withdrawn. IMPRESSION: 1. Normal colonoscopy PLAN: 1. Repeat colonoscopy in 10 years. The possibility of a missed lesion including a malignancy has been discussed with the patient previously. Potential alarm symptoms have been discussed and should be reported immediately.
[2021-03-14 15:46] VITALS: BP 126/68; PULSE 58; RESP 16; TEMP 37.1; O2SAT 100; BMI 19.3
[2021-03-14] MEDS: LACTATED RINGERS 1,000 ML 200 ML IV (16:06)
[2021-03-14] MEDS: HYOSCYAMINE 0.125 MG TABLET PO (16:12)
[2021-03-14] MEDS: fentaNYL 250 MCG/5 ML INJ IV (16:48)
[2021-03-14] MEDS: MIDAZOLAM 5 MG/5 ML VIAL IV (16:48)
[2021-03-14 16:49] VITALS: BP 124/72; PULSE 58; RESP 13; O2SAT 99
[2021-03-14 16:54] VITALS: BP 123/58; PULSE 59; RESP 13; O2SAT 99
[2021-03-14 17:00] VITALS: BP 120/70; PULSE 54; RESP 15; TEMP 37; O2SAT 100
[2021-03-14 17:08] VITALS: BP 133/70; PULSE 51; RESP 15; O2SAT 100
== END 2021-03-14 17:16 | disposition home or self-care (01) ==
PROVIDERS: PCP Family Medicine; Referring Provider Student in an Organized Health Care Education/Training Program; Visit Provider Student in an Organized Health Care Education/Training Program
PROC: 0DJD8ZZ Inspection of Lower Intestinal Tract, Via Natural or Artificial Opening Endoscopic (ICD-10-PCS; CPT 45378; principal; 2021-03-14 16:00)
DX: Z12.11 Encounter for screening for malignant neoplasm of colon (principal); K58.9 Irritable bowel syndrome, unspecified
CPT/HCPCS: 45378; J2250; J3010

== ENCOUNTER → 2021-12-12 09:54 | Outpatient (CLI) | payer OTHER, SELFPAY ==
--- NOTE | 2021-12-12 | DI.RAD.S_ITS ---
PROCEDURE: XR KNEE LT 3V INDICATIONS: Pain in left knee TECHNIQUE: 3 views of the knee were acquired. COMPARISON: [facility], , KNEE 3V RIGHT, 05/23/2010, 7:51. FINDINGS: Bones: No fractures or dislocations. No suspicious bony lesions. Soft tissues: Moderate joint effusion. No suspicious soft tissue calcifications. IMPRESSION: Moderate effusion. No visualized acute fracture or dislocation. However, if clinical concern and/or pain persist, short interval imaging followup in 7-10 days is recommended, as occult injury cannot be definitively excluded. Dictated by: Lady Mesa M.D. on 12/12/2021 at 13:58 Approved by: Lady Mesa M.D. on 12/12/2021 at 13:58
== END ==
PROVIDERS: PCP Family Medicine; Referring Provider Family Medicine; Visit Provider Family Medicine
DX: M25.562 Pain in left knee (principal); M25.462 Effusion, left knee
CPT/HCPCS: 73562

== ENCOUNTER → 2021-12-27 11:25 | Outpatient (CLI) | payer OTHER, SELFPAY ==
--- NOTE | 2021-12-27 | DI.MRI.S_ITS ---
PROCEDURE: MR KNEE LT WO CON INDICATIONS: PAIN IN KNEE L TECHNIQUE: Noncontrast sagittal PD fast spin echo and T2 fast spin echo with fat saturation, sagittal 3-D FLASH with fat saturation; coronal T1 spin echo and PD fast spin echo with fat saturation, and axial PD fast spin echo with fat saturation through the knee. COMPARISON: [facility], CR, XR KNEE LT 3V, 12/12/2021, 9:59. FINDINGS: Image quality: Excellent. Menisci: Linear oblique high T2 signal intensity traverses the peripheral 3rd of the medial meniscal body, demonstrating inferior articular surface extension, indicating oblique tearing. Lateral meniscus is intact. Cruciate ligaments: The anterior and posterior cruciate ligaments appear intact. Medial structures: The medial collateral ligament appears intact. Visualized portions of the pes anserinus tendons appear normal. No abnormal bursal fluid. Lateral structures: The lateral collateral ligament, long and short heads of the biceps femoris tendon appear intact. The popliteus tendon appears normal. Iliotibial band appears normal. Anterior structures: The quadriceps and patellar tendons appear intact. Patellar alignment is normal. No femoral trochlear dysplasia or ventral trochlear prominence. No edema in the infrapatellar fat pad. Bones and cartilage: No bone marrow contusions or fractures. There is moderate degenerative marrow edema and intraosseous ganglion formation within the patellar apex and medial patellar facet. There is mild tricompartmental periarticular osteophyte formation. Moderate articular cartilage loss diffusely overlies the weight-bearing aspects of the medial femoral condyle and medial tibial plateau. Severe articular cartilage loss overlies the patellar apex and medial patellar facet. Joint space: There is a small knee joint effusion and a small Anand's cyst. Normal appearing synovial plicae are incidentally noted. IMPRESSION: 1. Tricompartmental osteoarthritis with associated articular cartilage loss. 2. Medial meniscal tearing. 3. Knee joint effusion and Anand's cyst. Dictated by: Abigail Jones M.D. on 12/29/2021 at 8:58 Approved by: Abigail Jones M.D. on 12/29/2021 at 9:00
== END ==
PROVIDERS: PCP Family Medicine; Referring Provider Family Medicine; Visit Provider Family Medicine
DX: S83.242A Other tear of medial meniscus, current injury, left knee, initial encounter (principal); M71.22 Synovial cyst of popliteal space [Baker], left knee; M17.12 Unilateral primary osteoarthritis, left knee; M25.462 Effusion, left knee; M25.562 Pain in left knee
CPT/HCPCS: 73721

== ENCOUNTER → 2022-03-11 11:30 | Outpatient (CLI) | payer OTHER, SELFPAY ==
--- NOTE | 2022-03-11 | DI.MG.S_ITS ---
BILATERAL DIGITAL SCREENING MAMMOGRAM 3D/2D WITH CAD: 03/11/2022 CLINICAL: Routine screening. Comparison is made to exams dated: 02/22/2021 mammogram, 01/10/2020 mammogram, and 10/27/2018 mammogram - [facility]. There are scattered areas of fibroglandular density in both breasts (category b / 25%-50% glandular tissue). Current study was also evaluated with a Computer Aided Detection (CAD) system. No significant masses, calcifications, or other findings are seen in either breast. There has been no significant interval change. IMPRESSION: NEGATIVE There is no mammographic evidence of malignancy. A 1 year screening mammogram is recommended. Based on the Tyrer Cuzick model (a risk assessment model) the patient's lifetime risk is 9.3% and her 10 year risk is 4.0%. According to the ACR, ACS, and NCCN guidelines, an annual breast MRI exam along with mammogram is recommended if the patient's lifetime risk is 20% or greater. This exam was interpreted at Station ID: [id number]. NOTE: For mammograms, a report in lay terms will be sent to the patient. Approximately 15% of breast malignancies will not be visualized mammographically. In the management of a palpable breast mass, a negative mammogram must not discourage biopsy of a clinically suspicious lesion. Electronically Signed By: Sammie gomez/oniel:03/11/2022 12:31:05 letter sent: Normal Exam ACR BI-RADS Category 1: Negative [id number]
== END ==
PROVIDERS: PCP Family Medicine; Referring Provider Family Medicine; Visit Provider Family Medicine
DX: Z12.31 Encounter for screening mammogram for malignant neoplasm of breast (principal)
CPT/HCPCS: 77063; 77067

== ENCOUNTER → 2022-08-05 10:48 | Outpatient (CLI) | payer OTHER, SELFPAY ==
--- NOTE | 2022-08-05 10:58 | DI.DEXA.S_ITS ---
Indication: postmenopausal osteoporosis; Referring Provider: CONNER GILES Study: Bone densitometry was performed. Exam Date: August 05, 2022 Accession number: [id number] Bone Density: Region BMD T-score Z-score Classification AP Spine(L1-L4) 0.732 -2.9 -1.2 Osteoporosis Femoral Neck (Left) 0.566 -2.5 -1.1 Osteoporosis Total Hip (Left) 0.717 -1.8 -0.7 Osteopenia Femoral Neck (Right) 0.522 -2.9 -1.5 Osteoporosis Total Hip (Right) 0.714 -1.9 -0.8 Osteopenia Total Hip Mean 0.715 -1.9 -0.8 Osteopenia World Health Organization criteria for BMD impression classify patients as: Normal (T-score at or above -1.0), Osteopenia (T-score between -1.0 and -2.5), or Osteoporosis (T-score at or below -2.5). 10-year Fracture Risk: FRAX not reported because: Some T-score for Spine Total or Hip Total or Femoral Neck at or below -2.5 Previous Exams: -- Region Exam Age BMD T-score BMD Change BMD Change Date g/cm2 vs Baseline vs Previous -- AP Spine (L1-L4) 08/05/2022 62 0.732 -2.9 -0.017 (-2.3%)# -0.017 (-2.3%)# 03/11/2020 59 0.750 -2.7 Total Hip(Left) 08/05/2022 62 0.717 -1.8 -0.015 (-2.0%)# -0.015 (-2.0%)# 03/11/2020 59 0.731 -1.7 Total Hip(Right) 08/05/2022 62 0.714 -1.9 -0.030 (-4.0%)# -0.030 (-4.0%)# 03/11/2020 59 0.744 -1.6 -- *Denotes significance at 95% confidence level, LSC for AP Spine = 0.022 g/cm2, LSC for Total Hip = 0.027 g/cm2 # Denotes dissimilar scan types or analysis methods Impression: The patient has osteoporosis, based on the Total Spine T-score. No significant bone loss was observed. Discussion: INCREASED RISK OF FRACTURE. BONE DENSITY IS UNDESIRABLY LOW AT ONE OR MORE SKELETAL SITES, CONSISTENT WITH POSTMENOPAUSAL OSTEOPOROSIS. This patient's lowest T-score meets the World Health Organization's (WHO) criteria for osteoporosis at one or more sites (T-score -2.5 or below). In untreated patients, the risk of osteoporotic fracture increases approximately two-fold for each 1.0 SD decrease in T-score. Low bone density is not the only risk factor for fracture; also consider factors such as patient's age, frailty or poor health, risk of falling, risk of injury, previous osteoporotic fracture, family history of osteoporosis, cigarette smoking, low body weight, etc. Not everyone with low bone mineral density has osteoporosis; osteomalacia and other metabolic bone disorders should also be considered. Patients who have osteoporosis should be evaluated for specific diseases and conditions (secondary causes) that may cause or contribute to bone loss. The [place] [employer]ocrinologists (AACE) and National Osteoporosis Foundation (NOF) recommend pharmacologic intervention for all postmenopausal women whose T-score is in this range. The patient should follow a healthful lifestyle (good nutrition with adequate calcium and vitamin D, and appropriate weight-bearing exercise). Follow-Up: Consider a repeat BMD and Vertebral Fracture Assessment (VFA) exam in 2 years or sooner if medically necessary, to reassess this patient's status. Reported by: MACHELLE HARP M.D. on 08/05/2022 11:08:00 AM.
== END ==
PROVIDERS: PCP Family Medicine; Referring Provider Family Medicine; Visit Provider Family Medicine
DX: M81.0 Age-related osteoporosis without current pathological fracture (principal)
CPT/HCPCS: 77080

== ENCOUNTER → 2023-03-17 08:33 | Outpatient (CLI) | payer OTHER, SELFPAY ==
--- NOTE | 2023-03-17 08:37 | DI.MG.S_ITS ---
BILATERAL DIGITAL SCREENING MAMMOGRAM 3D/2D WITH CAD: 03/17/2023 CLINICAL: Routine screening. Comparison is made to exams dated: 03/11/2022 mammogram, 02/22/2021 mammogram, and 01/10/2020 mammogram - [facility]. There are scattered areas of fibroglandular density in both breasts (category b / 25%-50% glandular tissue). Current study was also evaluated with a Computer Aided Detection (CAD) system. No significant masses, calcifications, or other findings are seen in either breast. There has been no significant interval change. IMPRESSION: NEGATIVE There is no mammographic evidence of malignancy. A 1 year screening mammogram is recommended. Based on the Tyrer Cuzick model (a risk assessment model) the patient's lifetime risk is 9.0% and her 10 year risk is 4.1%. According to the ACR, ACS, and NCCN guidelines, an annual breast MRI exam along with mammogram is recommended if the patient's lifetime risk is 20% or greater. This exam was interpreted at Station ID: [id number]. NOTE: For mammograms, a report in lay terms will be sent to the patient. Approximately 15% of breast malignancies will not be visualized mammographically. In the management of a palpable breast mass, a negative mammogram must not discourage biopsy of a clinically suspicious lesion. Electronically Signed By: Any fragoso/oniel:03/17/2023 15:27:49 letter sent: Normal Exam ACR BI-RADS Category 1: Negative [id number]
== END ==
PROVIDERS: PCP Family Medicine; Referring Provider Family Medicine; Visit Provider Family Medicine
DX: Z12.31 Encounter for screening mammogram for malignant neoplasm of breast (principal)
CPT/HCPCS: 77063; 77067

== ENCOUNTER → 2024-02-16 11:56 | Outpatient (CLI) | payer OTHER, SELFPAY ==
--- NOTE | 2024-02-16 11:57 | DI.RAD.S_ITS ---
PROCEDURE: XR DEXA AXIAL SKELETON INDICATIONS: Age-related osteoporosis COMPARISON: [facility], CR, XR DEXA AXIAL SKELETON, 08/05/2022, 10:58. FINDINGS: Lumbar Spine: Bone mineral density 0.708 g/cm2, T score -3.1 compared to-2.9. Left Hip: Bone mineral density 0.705 g/cm2, T score -1.9, compared to -1.8. Left Femoral Neck: Bone mineral density 0.56 g/cm2, T score -2.5, unchanged. Right Hip: Bone mineral density 0.72 g/cm2, T score -1.7, compared to -1.9. Right Femoral Neck: Bone mineral density 0.519 g/cm2, T score -3.0, compared to -2.9. Fracture Risk Calculation (when applicable): 10-year fracture risk of a major osteoporotic fracture 13 percent and of a hip fracture 3.6 percent. (T score greater or equal to -1.0 to: NORMAL) (T score from -1.1 to -2.4: OSTEOPENIA) (T score less than or equal to -2.5: OSTEOPOROSIS) IMPRESSION: Minimal progression of osteoporosis within the lumbar spine and right femoral neck. Stable osteoporosis in the left femoral neck. Follow-up guidelines as follows: Osteoporosis: Consider a repeat DEXA and Vertebral Fracture Assessment (VFA) exam in 2 years or sooner if medically necessary, to reassess this patient's status. Osteopenia: Consider a repeat DEXA in 2-3 years to reassess this patient's status, or if there is a new clinical indication. Normal: Consider a repeat DEXA in 5 years or sooner, or if there is a new clinical indication. All treatment decisions require clinical judgment and consideration of individual patient factors, including patient preferences, comorbidities, previous drug use, risk factors not captured in the FRAX model (e.g., frailty, falls, vitamin D deficiency, increased bone turnover, interval significant decline in bone density ) and possible under- or over-estimation of fracture risk by FRAX. In addition, the NOF Guide recommends that FDA-approved medical therapies be considered in postmenopausal women and men age >= 50 years with a: * Hip or vertebral (clinical or morphometric) fracture * T-score of <=-2.5 at the spine or hip * Ten-year fracture probability by FRAX of >= 3% for hip fracture or >=20% for major osteoporotic fracture. People with diagnosed cases of osteoporosis or at high risk for fracture should have regular bone mineral density tests. For patients eligible for Medicare, routine testing is allowed once every 2 years. The testing frequency can be increased to one year for patients who have rapidly progressing disease, those who are receiving or discontinuing medical therapy to restore bone mass, or have additional risk factors. Dictated by: Lady Mesa M.D. on 02/16/2024 at 16:36 Approved by: Lady Mesa M.D. on 02/16/2024 at 16:40
== END ==
LOC: RAD 11:57
PROVIDERS: PCP Family Medicine; Referring Provider Family Medicine; Visit Provider Family Medicine
DX: M81.0 Age-related osteoporosis without current pathological fracture (principal)
CPT/HCPCS: 77080

== ENCOUNTER → 2024-03-22 15:28 | Outpatient (CLI) | payer OTHER, SELFPAY ==
--- NOTE | 2024-03-22 15:29 | DI.MG.S_ITS ---
BILATERAL DIGITAL SCREENING MAMMOGRAM 3D/2D WITH CAD: 03/22/2024 CLINICAL: Routine screening. Comparison is made to exams dated: 03/17/2023 mammogram, 03/11/2022 mammogram, 02/22/2021 mammogram, 01/10/2020 mammogram, 10/27/2018 mammogram, and 10/19/2017 mammogram - [facility]. There are scattered areas of fibroglandular density (category b / 25%-50% glandular tissue). Current study was also evaluated with a Computer Aided Detection (CAD) system. No significant masses, calcifications, or other findings are seen in either breast. There has been no significant interval change. IMPRESSION: NEGATIVE There is no mammographic evidence of malignancy. A 1 year screening mammogram is recommended. Based on the Tyrer Cuzick model (a risk assessment model) the patient's lifetime risk is 8.7% and her 10 year risk is 4.1%. According to the ACR, ACS, and NCCN guidelines, an annual breast MRI exam along with mammogram is recommended if the patient's lifetime risk is 20% or greater. This exam was interpreted at Station ID: [id number]. NOTE: For mammograms, a report in lay terms will be sent to the patient. Approximately 15% of breast malignancies will not be visualized mammographically. In the management of a palpable breast mass, a negative mammogram must not discourage biopsy of a clinically suspicious lesion. Electronically Signed By: Laura Setel M.D., Ph.D. can/oniel:03/23/2024 08:57:16 letter sent: Normal Exam ACR BI-RADS Category 1: Negative
== END ==
PROVIDERS: PCP Family Medicine; Referring Provider Family Medicine; Visit Provider Family Medicine
DX: Z12.31 Encounter for screening mammogram for malignant neoplasm of breast (principal)
CPT/HCPCS: 77063; 77067

== ENCOUNTER → 2025-02-21 12:15 | Outpatient (CLI) | payer OTHER, SELFPAY ==
--- NOTE | 2025-02-21 12:17 | DI.RAD.S_ITS ---
PROCEDURE: XR DEXA AXIAL SKELETON INDICATIONS: osteoporosis COMPARISON: [facility], CR, XR DEXA AXIAL SKELETON, 02/16/2024, 12:06. [facility], CR, XR DEXA AXIAL SKELETON, 08/05/2022, 10:58. FINDINGS: Lumbar Spine: Bone mineral density is 0.766 g/cm2, T score -2.6, no significant change due to dissimilar analysis or scan type. Osteoporosis. Left Femoral Neck: Bone mineral density 0.542 g/cm2, T score -2.8. Osteoporosis. Left Hip: Bone mineral density 0.723 g/cm2, T score -1.8, no significant change. Fracture Risk Calculation (when applicable): 10-year fracture risk of a major osteoporotic fracture 12 percent and of a hip fracture 3.0 percent. (T score greater or equal to -1.0 to: NORMAL) (T score from -1.1 to -2.4: OSTEOPENIA) (T score less than or equal to -2.5: OSTEOPOROSIS) IMPRESSION: Osteoporosis Follow-up guidelines as follows: Osteoporosis: Consider a repeat DEXA and Vertebral Fracture Assessment (VFA) exam in 2 years or sooner if medically necessary, to reassess this patient's status. Osteopenia: Consider a repeat DEXA in 2-3 years to reassess this patient's status, or if there is a new clinical indication. Normal: Consider a repeat DEXA in 5 years or sooner, or if there is a new clinical indication. All treatment decisions require clinical judgment and consideration of individual patient factors, including patient preferences, comorbidities, previous drug use, risk factors not captured in the FRAX model (e.g., frailty, falls, vitamin D deficiency, increased bone turnover, interval significant decline in bone density ) and possible under- or over-estimation of fracture risk by FRAX. In addition, the NOF Guide recommends that FDA-approved medical therapies be considered in postmenopausal women and men age >= 50 years with a: * Hip or vertebral (clinical or morphometric) fracture * T-score of <=-2.5 at the spine or hip * Ten-year fracture probability by FRAX of >= 3% for hip fracture or >=20% for major osteoporotic fracture. Dictated by: Juan Coon M.D. on 02/21/2025 at 16:52 Approved by: Juan Coon M.D. on 02/21/2025 at 16:56
== END ==
LOC: RAD 12:16
PROVIDERS: PCP Family Medicine; Referring Provider Family Medicine; Visit Provider Family Medicine
DX: M81.0 Age-related osteoporosis without current pathological fracture (principal)
CPT/HCPCS: 77080

== ENCOUNTER → 2025-04-06 16:03 | Outpatient (CLI) | payer OTHER, SELFPAY ==
--- NOTE | 2025-04-06 16:13 | DI.MG.S_ITS ---
MM screening mammo BI: 04/06/2025. BI-RADS: 1 CLINICAL: 64-year old female for bilateral screening mammogram. Tyrer-Cuzick lifetime risk of 3.1%. No personal or first-degree family history of breast cancer. PRIOR EXAMS 03/22/2024, 03/17/2023, 03/11/2022, 02/22/2021. MAMMOGRAPHY TECHNIQUE: 2D and 3D (tomosynthesis) digital mammographic views obtained, with additional images as needed for full coverage. Current study was also evaluated with a Computer Aided Detection (CAD) system. DENSITY B. There are scattered areas of fibroglandular density. MAMMOGRAPHY FINDINGS Bilateral: No suspicious mass, asymmetry, microcalcification, or other abnormality seen. IMPRESSION: * No evidence of malignancy. RECOMMENDATIONS Bilateral * Annual screening mammography. OVERALL ASSESSMENT CATEGORY BI-RADS-1: Negative. The [employer] recommends annual screening mammography beginning at age 40 for women with average risk of breast cancer. ELECTRONICALLY SIGNED: Abdullahi Jha M.D. on 04/06/2025 at 11:53:12 PM PT Interpreting Station ID: [id number]
== END ==
LOC: MAMMO 16:03
PROVIDERS: PCP Family Medicine; Referring Provider Family Medicine; Visit Provider Family Medicine
DX: Z12.31 Encounter for screening mammogram for malignant neoplasm of breast (principal)
CPT/HCPCS: 77063; 77067